=== PATIENT | female | born 1980 | race Caucasian/White ===

== ENCOUNTER 2016-05-25 09:24 | Inpatient (IN) | payer OTHER ==
[2016-05-25 10:17] VITALS: BMI 43.9
--- NOTE | 2016-05-25 11:42 | HP ---
COWS - Scale Resting Pulse: 1= [place] 81-100 Sweatin=Flushed/Facial Moisture Restless Observation: 3= Extraneous Movement Pupil Size: 2= Moderately Dilated Bone or Joint Aches: 2= Severe Diffuse Aches Runny Nose/ Eye Tearin= Runny Nose/Eyes GI Upset > 30mins: 3= Vomiting/Diarrhea Tremor Observation: 2= Slight Tremor Visible Yawning Observation: 2= >3x During Session Anxiety or Irritability: 2=Irritable/Anxious Goose Flesh Skin: 0=Smooth Skin COWS Score: 21 CIWA Score - CIWA Score Nausea/Vomitin Muscle Tremors: 3 Anxiety: 3 Agitation: 3 Paroxysmal Sweats: 2 Orientation: 0-Oriented Tacttile Disturbances: 2-Mild Itch/Numbness/Burn Auditory Disturbances: 2-Mild Harshness/Frighten Visual Disturbances: 2-Mild Sensitivity Headache: 2-Mild CIWA-Ar Total Score: 22 Admission ROS BHS - HPI Chief Complaint: I NEED HELP TO STOP USING HEROIN,KLONOPIN,ON SUBOXONE 8MGS/2 MGS BID,DID NOT TAKE SUBOXONE TODAY ASTHMA TMJ BOTH LAST DETOX 02/10 COMPLETED LONGEST PERIOD OF SOBRIETY 2 YEARS Allergies/Adverse Reactions: Allergies Allergy/AdvReac Type Severity Reaction Status Date / Time Cephalosporins Allergy Severe Swelling Verified 05/25/16 11:15 peach Allergy Severe Swelling Verified 02/05/15 21:03 Sulfa (Sulfonamide Allergy Severe Difficulty Verified 02/05/15 21:03 Antibiotics) Breathing History of Present Illness: THIS 36 YEARS OLD FEMALE WITH HEROIN,KONOPIN DEPENDENCE,SUBXOXONE MAINTENANCE 8MG/2 MS DID NOT EANT TO BE ON SUBOXONE ANY MORE FOR DETOX Exam Limitations: No Limitations - Ebola screening Have you traveled outside of the country in the last 21 days: No Have you had contact with anyone from an Ebola affected area: No Have you been sick,other than usual withdrawal symptoms: No Do you have a fever: No - Review of Systems Constitutional: Chills, Diaphoresis, Loss of Appetite, Malaise, Night Sweats, Changes in sleep, Weakness EENT: reports: Tearing, Nose Congestion, Other (HAD ENLARGED THYROID FOR 3 MONTHS ,WAS TOLD TO BE THE CYST, FOR 3 MONTHS) Respiratory: reports: No Symptoms reported Cardiac: reports: Palpitations GI: reports: Diarrhea, Nausea, Indigestion, Abdominal cramping : reports: No Symptoms Reported Musculoskeletal: reports: Back Pain, Joint Pain, Muscle Pain, Joint Stiffness Integumentary: reports: Dryness Neuro: reports: Headache, Tremors Endocrine: reports: No Symptoms Reported, Other (HAD PROBLEM WITH THYROID) Hematology: reports: No Symptoms Reported Psychiatric: reports: Anxious, Depressed Patient History - Patient Medical History Hx Anemia: No Hx Asthma: Yes (Pt is on MDI.) Hx Chronic Obstructive Pulmonary Disease (COPD): No Hx Cancer: No Hx Cardiac Disorders: No Hx Congestive Heart Failure: No Hx Hypertension: No Hx Hypercholesterolemia: No Hx Pacemaker: No HX Cerebrovascular Accident: No Hx Seizures: No Hx Dementia: No Hx Diabetes: No Hx Gastrointestinal Disorders: No Hx Liver Disease: No Hx Genitourinary Disorders: No Hx Sexually Transmitted Disorders: No Hx Renal Disease (ESRD): No Hx Thyroid Disease: Yes (ENLARGED THYROID AND THYROID CYST FOR 3 MONTHS) Hx Human Immunodeficiency Virus (HIV): No (LAST 12/11 NEGATIVE) Hx Hepatitis C: No Hx Depression: Yes Hx Suicide Attempt: Yes (Tried to cut herself in 2008) Hx Bipolar Disorder: No Hx Schizophrenia: No Other Medical History: NO SUICIDAL,NO HOMICIDAL - Patient Surgical History Past Surgical History: Yes Hx Cholecystectomy: Yes (2009 [facility]) - PPD History Previous Implant?: Yes Documented Results: Negative w/o proof Implanted On Prior [facility] Admission?: No PPD to be Administered?: Yes - Reproductive History Patient is a Female of Child Bearing Age (11 -55 yrs old): Yes Last Menstrual Period: 05/15/16 Patient : No - Smoking Cessation Smoking history: Never smoked - Substance & Tx. History Hx Alcohol Use: Yes Hx Substance Use: Yes Substance Use Type: Heroin, Tranquilizers - Substances Abused Heroin Route: Inhalation Frequency: Daily Amount used: 10 bags Age of first use: 34 Date of Last Use: 05/24/16 Benzodiazepine (Klonopin) Route: Oral Frequency: Daily Amount used: 20mg Age of first use: 28 Date of Last Use: 05/24/16 Family Disease History - Family Disease History Family Disease History: Other: Father (DSA), Mother (SANDI) Admission Physical Exam BHS - Vital Signs Vital Signs: Vital Signs - 24 hr 05/25/16 10:15 Temperature 96.2 F L Pulse Rate 99 H Respiratory 18 Rate Blood Pressure 134/89 - Physical General Appearance: Yes: Moderate Distress, Tremorous, Irritable, Sweating, Anxious HEENTM: Yes: Nasal Congestion, Other (ENLARGED THYROID WITH PAIN LEFT SIDE OF NECK HYPOTHYROID) Respiratory: Yes: Lungs Clear, Normal Breath Sounds, No Respiratory Distress Neck: Yes: Thyroid enlarged Breast: Yes: Breast Exam Deferred Cardiology: Yes: Within Normal Limits, Regular Rhythm, Regular Rate, S1, S2 Abdominal: Yes: Normal Bowel Sounds, Non Tender, Flat, Soft, Surgical Scar Genitourinary: Yes: Within Normal Limits Back: Yes: Normal Inspection, Muscle Spasm Extremities: Yes: Normal Inspection, Normal Range of Motion, Tremors 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: 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, Fully Oriented, Alert, Motor Strength 5/5 Integumentary: Yes: Dry Lymphatic: Yes: Within Normal Limits - Diagnostic (1) Opioid dependence with withdrawal Current Visit: Yes Status: Acute (2) Uncomplicated sedative, hypnotic or anxiolytic withdrawal Current Visit: Yes Status: Acute (3) Encounter for monitoring Suboxone maintenance therapy Current Visit: Yes Status: Acute (4) TMJ (temporomandibular joint disorder) Current Visit: Yes Status: Acute (5) Anxiety with depression Current Visit: Yes Status: Acute (6) Asthma Current Visit: Yes Status: Acute (7) Hypothyroid Current Visit: Yes Status: Acute (8) H/O thyroid cyst Current Visit: Yes Status: Acute (9) Obesity Current Visit: Yes Status: Acute (10) S/P laparoscopic cholecystectomy Current Visit: Yes Status: Acute Cleared for Admission [facility] - Detox or Rehab [facility] Level of Care: Medically Managed Detox Regimen/Protocol: Methadone/Valium (PATIENT DID NOT WANT TO BE ON SUBOXONE ) [facility] Breath Alcohol Content Breath Alcohol Content: 0 Urine Pregancy Test - Result Urine Test Results: Negative- NO Line Present Urine Drug Screen - Results Drug Screen Negative: No Urine Drug Screen Results: OPI-Opiates, BZO-Benzodiazepines, TCA-Tricyclic Antidepress, OXY-Oxycodone
[2016-05-25] MEDS ORDERED: MAG HYDROX/AL HYDROX/SIMETH 30 ML UNIT-DOSE CUP PO PRN (12:15)
[2016-05-25] MEDS ORDERED: MENTHOL/PHENOL 1 EACH UD MM PRN (12:15)
[2016-05-25] MEDS ORDERED: MAGNESIUM CITRATE 300 ML BOTTLE PO PRN (12:15)
[2016-05-25] MEDS ORDERED: MAGNESIUM HYDROX 2400MG/30ML ORAL SUSPENSION 30 ML CUP PO PRN (12:15)
[2016-05-25] MEDS ORDERED: P-EPHED 60MG/TRIPROLIDI 2.5MG TABLET PO PRN (12:15)
[2016-05-25] MEDS ORDERED: LOPERAMIDE HCL 2 MG CAPSULE PO PRN (12:15)
[2016-05-25] MEDS ORDERED: ACETAMINOPHEN 325 MG TABLET (FP) PO PRN (12:15)
[2016-05-25] MEDS ORDERED: guaiFENesin/D-METHORPHAN HB 10 ML UNIT-DOSE CUPS PO PRN (12:15)
[2016-05-25] MEDS ORDERED: diazePAM 5 MG TABLET PO ONE (12:39)
[2016-05-25] MEDS ORDERED: METHADONE HCL 10 MG TABLET (FOR DETOX USE ONLY) PO ONE ×2 (12:40→23:00)
[2016-05-25] MEDS: CYCLOBENZAPRINE HCL 10 MG TABLET (FP) PO SCH ×2 (13:42→22:30)
[2016-05-25] MEDS: diazePAM 5 MG TABLET PO SCH ×2 (15:00→22:30)
[2016-05-25] MEDS: IBUPROFEN 400 MG TABLET (FP) PO PRN (15:32)
[2016-05-25] MEDS: hydrOXYzine PAMOATE 50 MG CAPSULE (FP) PO PRN (15:32)
[2016-05-25] MEDS: diazePAM 5 MG TABLET PO PRN (18:06)
[2016-05-25 20:29] LABS: URINE APPEARANCE CLEAR; URINE BILIRUBIN NEGATIVE (NEGATIVE); URINE BLOOD NEGATIVE (NEGATIVE); URINE COLOR YELLOW; URINE GLUCOSE (UA) NEGATIVE (NEGATIVE); URINE KETONE NEGATIVE (NEGATIVE); URINE LEUK ESTERASE NEGATIVE (NEGATIVE); URINE NITRITE NEGATIVE (NEGATIVE); URINE PROTEIN NEGATIVE (NEGATIVE); URINE UROBILINOGEN NEGATIVE E.U./dl (0.2-1.0)
[2016-05-25] MEDS: cloNIDine HCL 0.1 MG TABLET PO SCH (22:29)
[2016-05-25] MEDS: GABAPENTIN 400 MG CAPSULE (FP) PO SCH (22:30)
[2016-05-25] MEDS: THIAMINE HCL 100 MG TABLET (FP) PO SCH (22:30)
[2016-05-25] MEDS: diphenhydrAMINE HCL 50 MG CAPSULE PO PRN (22:31)
[2016-05-26] MEDS: diazePAM 5 MG TABLET PO PRN ×3 (00:32→16:51)
[2016-05-26] MEDS: diazePAM 5 MG TABLET PO SCH ×3 (05:52→22:23)
[2016-05-26] MEDS: CYCLOBENZAPRINE HCL 10 MG TABLET (FP) PO SCH ×3 (05:52→22:21)
[2016-05-26 09:47] LABS: URINE APPEARANCE CLEAR; URINE BILIRUBIN NEGATIVE (NEGATIVE); URINE BLOOD NEGATIVE (NEGATIVE); URINE COLOR YELLOW; URINE GLUCOSE (UA) NEGATIVE (NEGATIVE); URINE KETONE NEGATIVE (NEGATIVE); URINE LEUK ESTERASE NEGATIVE (NEGATIVE); URINE NITRITE NEGATIVE (NEGATIVE); URINE PROTEIN NEGATIVE (NEGATIVE); URINE UROBILINOGEN NEGATIVE E.U./dl (0.2-1.0)
[2016-05-26 09:49] LABS: MCH 29.4 pg (25.7-33.7); MCHC 33.3 g/dl (32.0-36.0); MEAN CELL VOLUME 88.3 fl (80-96); MEAN PLT VOLUME 8.4 fl (7.5-11.1); PLATELET COUNT 263 K/MM3 (134-434); RDW 13.1 % (11.6-15.6); WHITE BLOOD COUNT 7.8 K/mm3 (4.0-10.0)
[2016-05-26] MEDS ORDERED: METHADONE HCL 10 MG TABLET (FOR DETOX USE ONLY) PO SCH (10:00)
[2016-05-26] MEDS ORDERED: TRIMETHOBENZAMIDE HCL 300 MG CAPSULE PO PRN (10:22)
--- NOTE | 2016-05-26 10:26 | PN ---
[facility] CIWA - CIWA Score Nausea/Vomitin-No Nausea/No Vomiting Muscle Tremors: 3 Anxiety: 3 Agitation: 4-Moderately Restless Paroxysmal Sweats: 3 Orientation: 0-Oriented Tacttile Disturbances: 0-None Auditory Disturbances: 0-None Visual Disturbances: 0-None Headache: 1-Very Mild CIWA-Ar Total Score: 14 BHS COWS - Scale Resting Pulse: 0= [place] 80 or Below Sweatin=Flushed/Facial Moisture Restless Observation: 1= Difficult to Sit Still Pupil Size: 0= Normal to Room Light Bone or Joint Aches: 2= Severe Diffuse Aches Runny Nose/ Eye Tearin= Runny Nose/Eyes GI Upset > 30mins: 2= Nausea/Diarrhea Tremor Observation of Outstretched Hands: 2= Slight Tremor Visible Yawning Observation: 2= >3x During Session Anxiety or Irritability: 2=Irritable/Anxious Goose Flesh Skin: 3=Piloerection COWS Score: 18 [facility] Progress Note (SOAP) Subjective: sweats shakes interrupted sleep agitation anxiety body aches nausea I have hemorrhoids Objective: 05/26/16 10:25 Vital Signs Temperature 97.2 F L 05/26/16 06:00 Pulse Rate 96 H 05/26/16 06:00 Respiratory Rate 18 05/26/16 06:00 Blood Pressure 119/70 05/26/16 06:00 O2 Sat by Pulse Oximetry (%) Laboratory Tests 05/25/16 05/26/16 13:00 07:00 Urine Color Yellow Yellow Urine Appearance Clear Clear Urine pH 5.0 5.0 Ur Specific [place] 1.026 1.029 Urine Protein Negative Negative Urine Glucose (UA) Negative Negative Urine Ketones Negative Negative Urine Blood Negative Negative Urine Nitrite Negative Negative Urine Bilirubin Negative Negative Urine Urobilinogen Negative Negative Ur Leukocyte Esterase Negative Negative labs pending awake/alert ambulating no acute distress Assessment: 05/26/16 10:26 withdrawal sx Plan: continue detox increase fluids tigan po prn motrin/tylenol prn anusol bid
[2016-05-26 10:36] LABS: HIV 1 & 2 AB NEGATIVE; HIV 1 AGp24 NEGATIVE
[2016-05-26] MEDS: cloNIDine HCL 0.1 MG TABLET PO SCH ×2 (10:42→22:20)
[2016-05-26] MEDS: PRENATAL VITAMINS W/ FOLIC ACID TABLET (FP) PO SCH (10:42)
--- NOTE | 2016-05-26 11:56 | EKG ---
Test Reason : Blood Pressure : / mmHG Vent. Rate : 094 BPM Atrial Rate : 094 BPM P-R Int : 142 ms QRS Dur : 084 ms QT Int : 374 ms P-R-T Axes : 051 043 037 degrees QTc Int : 467 ms NORMAL SINUS RHYTHM NONSPECIFIC ST ABNORMALITY NO PREVIOUS ECGS AVAILABLE Confirmed by MONI OVALLE MD ([id number]) on 05/26/2016 11:56:27 AM Referred By: Wolf Boyd Confirmed By:MONI OVALLE MD
[2016-05-26] MEDS: HYDROCORTISONE 2.5% TOPICAL CREAM 30 GM TUBE TP SCH ×2 (11:58→22:19)
[2016-05-26] MEDS ORDERED: INFLUENZA VACCINE 45 MCG/0.5 ML (MDV 16-17) IM ONE (12:00)
[2016-05-26] MEDS ORDERED: PNEUMOC 13-VAL CONJ-DIP CRM/PF 0.5 ML DISP.SYRIN IM ONE (12:00)
[2016-05-26] MEDS ORDERED: PNEUMOCOCCAL 23 VACCINE 0.5 ML VIAL IM ONE (12:00)
[2016-05-26 12:17] LABS: ALK PHOS 104 U/L (45-117); ANION GAP 10 (8-16); BILIRUBIN,TOTAL 0.3 mg/dL (0.2-1.0); CALCIUM 8.7 mg/dL (8.5-10.1); CO2 29 mmol/L (21-32); CREATININE 0.9 mg/dL (0.55-1.02); FREE T4 0.79 ng/dl (0.76-1.46); GLUCOSE,RANDOM 111 mg/dL (74-106); SGOT/AST 46 U/L (15-37); SGPT/ALT 37 U/L (12-78); T3 UPTAKE 34.3 % (30-39); THYROID STIMULATING HORMONE 4.18 uIU/ml (0.358-3.74); TOT PROT 7.5 g/dl (6.4-8.2)
--- NOTE | 2016-05-26 13:05 | CONSULT ---
[facility] Psychiatric Consult - Data Date of interview: 05/26/16 Admission source: [facility] Identifying data: First admission to [facility] for this 36 y/o female seeking detox treatment for heroin and sedative/anxiolytic (klonopin) dependence.Patient is without children,domiciled,currently unemployed and supported by spouse. Substance Abuse History: - Smoking Cessation. Smoking history: Never smoked. - Substance & Tx. History. Hx Alcohol Use: Yes. Hx Substance Use: Yes. Substance Use Type: Heroin, Tranquilizers. - Substances Abused. Heroin. Route: Inhalation. Frequency: Daily. Amount used: 10 bags. Age of first use: 34. Date of Last Use: 05/24/16. Benzodiazepine (Klonopin). Route: Oral. Frequency: Daily. Amount used: 20mg. Age of first use: 28. Date of Last Use: 05/24/16. Confirmed by patient. Medical History: Bronchial asthma,trigeminal neuralgia,thyroid cyst and a history of cholecystectomy (2009). Psychiatric History: Twice admitted to the psychiatric inpatient service at [facility] (2008).Diagnosed with MDD and Anxiety Disorder.Prescibed gabapentin 03985 mg/hs + amitryptiline 50 mg/bid + wellbutrinXL 300 mg/daily.Followed by a private psychiatrist,Dr Taylor,in [facility].Ms Ralph denies history of suicide attempts. Physical/Sexual Abuse/Trauma History: Patient denies. Additional Comment: Urine Drug Screen Results: OPI-Opiates, BZO-Benzodiazepines , TCA-Tricyclic Antidepressant, OXY-Oxycodone.Noted. Mental Status Exam - Mental Status Exam Alert and Oriented to: Time, Place, Person Cognitive Function: Good Patient Appearance: Well Groomed (obese) Mood: Sad, Withdrawn, Anxious, Apprehensive Affect: Constricted Patient Behavior: Fatigued, Appropriate, Cooperative Speech Pattern: Clear, Appropriate Voice Loudness: Normal Thought Process: Goal Oriented Thought Disorder: Not Present Hallucinations: Denies Suicidal Ideation: Denies Homicidal Ideation: Denies Insight/Judgement: Fair Sleep: Fair Appetite: Good Muscle strength/Tone: Normal Gait/Station: Normal Psychiatric Findings - Problem List ([place] 1, 2,3) (1) Opioid dependence with withdrawal Current Visit: Yes Status: Acute (2) Uncomplicated sedative, hypnotic or anxiolytic withdrawal Current Visit: Yes Status: Acute (3) Depressive disorder Current Visit: Yes Status: Chronic (4) Substance-induced anxiety disorder Current Visit: Yes Status: Acute (5) H/O thyroid cyst Current Visit: Yes Status: Chronic (6) Hypothyroid Current Visit: Yes Status: Chronic (7) Obesity Current Visit: Yes Status: Chronic (8) S/P laparoscopic cholecystectomy Current Visit: No Status: Chronic (9) TMJ (temporomandibular joint disorder) Current Visit: Yes Status: Chronic - Initial Treatment Plan Initial Treatment Plan: Psychoeducation.Detoxification.Medications : wellbutrin XL 300 mg po daily + elavil 25 mg po bid + gabapentin 1200 mg po hs.Side effects /benefits discussed with the patient.She agrees with this careplan.Observation.
[2016-05-26] MEDS ORDERED: diphenhydrAMINE HCL 50 MG CAPSULE PO PRN (13:36)
[2016-05-26] MEDS ORDERED: diphenhydrAMINE HCL 50 MG CAPSULE PO ONE (14:15)
[2016-05-26] MEDS: AMITRIPTYLINE HCL 25 MG TABLET (FP) PO SCH (22:21)
[2016-05-26] MEDS: GABAPENTIN 400 MG CAPSULE (FP) PO SCH (22:21)
[2016-05-26] MEDS: THIAMINE HCL 100 MG TABLET (FP) PO SCH (22:23)
[2016-05-27] MEDS: diazePAM 5 MG TABLET PO PRN ×3 (05:39→18:29)
[2016-05-27] MEDS: CYCLOBENZAPRINE HCL 10 MG TABLET (FP) PO SCH ×3 (05:39→22:42)
[2016-05-27] MEDS: ALBUTEROL SO4 6.7 GM HFA INHALER IH PRN ×2 (05:42→11:16)
[2016-05-27] MEDS: HYDROCORTISONE 2.5% TOPICAL CREAM 30 GM TUBE TP SCH ×2 (10:35→22:40)
[2016-05-27] MEDS: PRENATAL VITAMINS W/ FOLIC ACID TABLET (FP) PO SCH (10:36)
[2016-05-27] MEDS: diazePAM 5 MG TABLET PO SCH ×2 (10:36→22:42)
[2016-05-27] MEDS: cloNIDine HCL 0.1 MG TABLET PO SCH ×2 (10:36→22:40)
[2016-05-27] MEDS: AMITRIPTYLINE HCL 25 MG TABLET (FP) PO SCH ×2 (10:36→23:28)
[2016-05-27] MEDS: METHADONE HCL 5 MG TABLET (FOR DETOX USE ONLY) PO SCH (10:37)
--- NOTE | 2016-05-27 13:29 | PN ---
[facility] CIWA - CIWA Score Nausea/Vomitin Muscle Tremors: 3 Anxiety: 3 Agitation: 2 Paroxysmal Sweats: 1-Minimal Palms Moist Orientation: 0-Oriented Tacttile Disturbances: 1-Very Mild Itch/Numbness Auditory Disturbances: 1-Very Mild Visual Disturbances: 1-Very Mild Sensitivity Headache: 2-Mild CIWA-Ar Total Score: 17 BHS Progress Note (SOAP) Subjective: ALERT,IRRITABLE,ANXIOUS,INTERRUPTED SLEEP,PAIN IN THE BODY AND BACK,TREMOR, ULCER OF RIGHT HEEL Objective: 05/27/16 13:27 Vital Signs Temperature 99.1 F 05/27/16 10:01 Pulse Rate 91 H 05/27/16 10:01 Respiratory Rate 18 05/27/16 10:01 Blood Pressure 124/70 05/27/16 10:01 O2 Sat by Pulse Oximetry (%) Laboratory Last Values WBC 7.8 K/mm3 (4.0-10.0) 05/26/16 06:00 RBC 4.69 M/mm3 (3.60-5.2) 05/26/16 06:00 Hgb 13.8 GM/dL (10.7-15.3) 05/26/16 06:00 Hct 41.4 % (32.4-45.2) 05/26/16 06:00 MCV 88.3 fl (80-96) 05/26/16 06:00 MCHC 33.3 g/dl (32.0-36.0) 05/26/16 06:00 RDW 13.1 % (11.6-15.6) 05/26/16 06:00 Plt Count 263 K/MM3 (134-434) 05/26/16 06:00 MPV 8.4 fl (7.5-11.1) 05/26/16 06:00 Sodium 142 mmol/L (136-145) 05/26/16 06:00 Potassium 3.8 mmol/L (3.5-5.1) 05/26/16 06:00 Chloride 103 mmol/L (98-107) 05/26/16 06:00 Carbon Dioxide 29 mmol/L (21-32) 05/26/16 06:00 Anion Gap 10 (8-16) 05/26/16 06:00 BUN 16 mg/dL (7-18) 05/26/16 06:00 Creatinine 0.9 mg/dL (0.55-1.02) 05/26/16 06:00 Creat Clearance w eGFR > 60 (>60) 05/26/16 06:00 Random Glucose 111 mg/dL (74-106) H 05/26/16 06:00 Calcium 8.7 mg/dL (8.5-10.1) 05/26/16 06:00 Total Bilirubin 0.3 mg/dL (0.2-1.0) 05/26/16 06:00 AST 46 U/L (15-37) H 05/26/16 06:00 ALT 37 U/L (12-78) 05/26/16 06:00 Alkaline Phosphatase 104 U/L (45-117) 05/26/16 06:00 Total Protein 7.5 g/dl (6.4-8.2) 05/26/16 06:00 Albumin 4.0 g/dl (3.4-5.0) 05/26/16 06:00 TSH 4.18 uIU/ml (0.358-3.74) H 05/26/16 06:00 Free T4 0.79 ng/dl (0.76-1.46) 05/26/16 06:00 Resin T3 Uptake 34.3 % (30-39) 05/26/16 06:00 Urine Color Yellow 05/26/16 07:00 Urine Appearance Clear 05/26/16 07:00 Urine pH 5.0 (5.0-8.0) 05/26/16 07:00 Ur Specific [place] 1.029 (1.001-1.035) 05/26/16 07:00 Urine Protein Negative (NEGATIVE) 05/26/16 07:00 Urine Glucose (UA) Negative (NEGATIVE) 05/26/16 07:00 Urine Ketones Negative (NEGATIVE) 05/26/16 07:00 Urine Blood Negative (NEGATIVE) 05/26/16 07:00 Urine Nitrite Negative (NEGATIVE) 05/26/16 07:00 Urine Bilirubin Negative (NEGATIVE) 05/26/16 07:00 Urine Urobilinogen Negative E.U./dl (0.2-1.0) 05/26/16 07:00 Ur Leukocyte Esterase Negative (NEGATIVE) 05/26/16 07:00 RPR Titer Nonreactive (NONREACTIVE) 05/26/16 06:00 HIV 1&2 Antibody Screen Negative 05/25/16 13:00 HIV P24 Antigen Negative 05/25/16 13:00 Assessment: 05/27/16 13:28 WITHDRAWAL SYMPTOM Plan: CONTINUE DETOX,BACITRACIN OINTMENT DRESSING BID
[2016-05-27] MEDS: THIAMINE HCL 100 MG TABLET (FP) PO SCH (22:41)
[2016-05-27] MEDS: GABAPENTIN 400 MG CAPSULE (FP) PO SCH (22:42)
[2016-05-28] MEDS: diazePAM 5 MG TABLET PO PRN ×2 (04:03→12:07)
[2016-05-28] MEDS: ALBUTEROL SO4 6.7 GM HFA INHALER IH PRN ×2 (04:43→17:27)
[2016-05-28] MEDS: CYCLOBENZAPRINE HCL 10 MG TABLET (FP) PO SCH ×3 (05:11→22:26)
[2016-05-28] MEDS: IBUPROFEN 400 MG TABLET (FP) PO PRN (08:45)
[2016-05-28] MEDS: PRENATAL VITAMINS W/ FOLIC ACID TABLET (FP) PO SCH (10:36)
[2016-05-28] MEDS: AMITRIPTYLINE HCL 25 MG TABLET (FP) PO SCH ×2 (10:37→22:27)
[2016-05-28] MEDS: cloNIDine HCL 0.1 MG TABLET PO SCH ×2 (10:37→22:26)
[2016-05-28] MEDS: METHADONE HCL 5 MG TABLET (FOR DETOX USE ONLY) PO SCH (10:38)
[2016-05-28] MEDS: HYDROCORTISONE 2.5% TOPICAL CREAM 30 GM TUBE TP SCH ×2 (10:38→22:27)
[2016-05-28] MEDS: diazePAM 5 MG TABLET PO SCH ×2 (10:38→22:27)
[2016-05-28] MEDS: LIDOCAINE 5% TOPICAL PATCH TP SCH (12:07)
--- NOTE | 2016-05-28 13:10 | PN ---
BHS Progress Note (SOAP) Subjective: ALERT,IRRITABLE,ANXIOUS,INTERRUPTED SLEEP,TREMOR,PAIN IN THE BODY AND BACK Objective: 05/28/16 13:09 Vital Signs Temperature 98.2 F 05/28/16 10:52 Pulse Rate 82 05/28/16 10:52 Respiratory Rate 20 05/28/16 10:52 Blood Pressure 119/75 05/28/16 10:52 O2 Sat by Pulse Oximetry (%) 05/28/16 13:09 Assessment: 05/28/16 13:09 WITHDRAWAL SYMPTOM Plan: CONTINUE DETOX
[2016-05-28] MEDS: THIAMINE HCL 100 MG TABLET (FP) PO SCH (22:26)
[2016-05-28] MEDS: GABAPENTIN 400 MG CAPSULE (FP) PO SCH (22:26)
[2016-05-29] MEDS: IBUPROFEN 400 MG TABLET (FP) PO PRN ×2 (00:44→05:49)
[2016-05-29] MEDS: CYCLOBENZAPRINE HCL 10 MG TABLET (FP) PO SCH ×3 (05:47→22:35)
[2016-05-29] MEDS: hydrOXYzine PAMOATE 50 MG CAPSULE (FP) PO PRN ×3 (05:49→20:40)
[2016-05-29] MEDS ORDERED: ALBUTEROL SO4 2.5/IPRATROPIUM 0.5 INH SOL 3 ML VIAL.NEB. NEB PRN (09:31)
[2016-05-29] MEDS ORDERED: diazePAM 5 MG TABLET PO SCH (10:00)
[2016-05-29] MEDS ORDERED: METHADONE HCL 10 MG TABLET (FOR DETOX USE ONLY) PO SCH (10:00)
[2016-05-29] MEDS: cloNIDine HCL 0.1 MG TABLET PO SCH ×2 (10:14→22:34)
[2016-05-29] MEDS: PRENATAL VITAMINS W/ FOLIC ACID TABLET (FP) PO SCH (10:14)
[2016-05-29] MEDS: AMITRIPTYLINE HCL 25 MG TABLET (FP) PO SCH ×2 (10:15→22:35)
[2016-05-29] MEDS: HYDROCORTISONE 2.5% TOPICAL CREAM 30 GM TUBE TP SCH ×2 (10:16→22:34)
[2016-05-29] MEDS: LIDOCAINE 5% TOPICAL PATCH TP SCH (10:17)
--- NOTE | 2016-05-29 10:33 | PN ---
BHS Progress Note (SOAP) Subjective: asthma/sob sweats body aches Objective: 05/29/16 10:27 Vital Signs Temperature 97.3 F L 05/29/16 06:00 Pulse Rate 87 05/29/16 06:00 Respiratory Rate 18 05/29/16 06:00 Blood Pressure 100/56 05/29/16 06:00 O2 Sat by Pulse Oximetry (%) awake/alert ambulating SOB Assessment: 05/29/16 10:31 withdrawal sx Plan: continue detox increase fluids duoneb prn albuterol tx d/c in am
[2016-05-29] MEDS: diphenhydrAMINE HCL 50 MG CAPSULE PO PRN (22:34)
[2016-05-29] MEDS: GABAPENTIN 400 MG CAPSULE (FP) PO SCH (22:35)
[2016-05-29] MEDS: THIAMINE HCL 100 MG TABLET (FP) PO SCH (22:35)
[2016-05-30] MEDS: CYCLOBENZAPRINE HCL 10 MG TABLET (FP) PO SCH (05:43)
[2016-05-30] MEDS ORDERED: METHADONE HCL 5 MG TABLET (FOR DETOX USE ONLY) PO SCH (06:00)
--- NOTE | 2016-05-30 08:48 | DS ---
[facility] Detox Discharge Summary Admission Date: 05/25/16 Discharge Date: 05/30/16 - History Present History: Opioid Dependence, Sedative Dependence - Physical Exam Results Vital Signs: Vital Signs Temperature 97.7 F 05/30/16 06:32 Pulse Rate 97 H 05/30/16 06:32 Respiratory Rate 20 05/30/16 06:32 Blood Pressure 105/68 05/30/16 06:32 O2 Sat by Pulse Oximetry (%) - Treatment Hospital Course: Detox Protocol Followed, Detoxed Safely, Responded well, Discharged Condition Good, Rehab Referral Accepted - Medication Discharge Medications: Ambulatory Orders Albuterol Sulfate Inhaler - [Ventolin Hfa Inhaler -] 2 inh PO Q4H PRN 05/25/16 Amitriptyline HCl [Elavil -] 50 mg PO BID 05/25/16 Buprenorphine/Naloxone [Suboxone 8Mg/2Mg Sl Film -] 1 each SL BID 05/25/16 Bupropion HCl [Bupropion Xl] 300 mg PO DAILY 05/25/16 Clonidine HCl [Catapres -] 0.2 mg PO BID 05/25/16 Cyclobenzaprine HCl [Flexeril 10 mg] 10 mg PO TID 05/25/16 Gabapentin 1,200 mg PO HS 05/25/16 - Diagnosis (1) Anxiety with depression Current Visit: Yes Status: Chronic (2) Asthma Current Visit: Yes Status: Chronic Qualifiers: Asthma complication type: uncomplicated (3) Encounter for monitoring Suboxone maintenance therapy Current Visit: Yes Status: Acute (4) Opioid dependence with withdrawal Current Visit: Yes Status: Chronic (5) Substance-induced anxiety disorder Current Visit: Yes Status: Chronic (6) Uncomplicated sedative, hypnotic or anxiolytic withdrawal Current Visit: Yes Status: Chronic (7) Depressive disorder Current Visit: Yes Status: Chronic (8) H/O thyroid cyst Current Visit: Yes Status: Chronic (9) Hypothyroid Current Visit: Yes Status: Chronic (10) Obesity Current Visit: Yes Status: Chronic Qualifiers: Obesity severity: morbid (11) TMJ (temporomandibular joint disorder) Current Visit: Yes Status: Chronic (12) S/P laparoscopic cholecystectomy Current Visit: No Status: Chronic - AMA Did Patient Leave Against Medical Advice: No
[2016-05-30] MEDS: PRENATAL VITAMINS W/ FOLIC ACID TABLET (FP) PO SCH (09:21)
[2016-05-30] MEDS: cloNIDine HCL 0.1 MG TABLET PO SCH (09:21)
[2016-05-30] MEDS: AMITRIPTYLINE HCL 25 MG TABLET (FP) PO SCH (09:21)
[2016-05-30] MEDS: LIDOCAINE 5% TOPICAL PATCH TP SCH (09:22)
[2016-05-30 10:54] VITALS: BP 107/67; PULSE 106; TEMP 98.2
== END 2016-05-30 09:30 | disposition home or self-care (01) | DRG 773 ==
LOC: YASAS 09:24 → Y6N 12:01
PROVIDERS: ADMIT Internal Medicine Addiction Medicine; ATTEND Internal Medicine Addiction Medicine
PROC: HZ2ZZZZ Detoxification Services for Substance Abuse Treatment (ICD-10-PCS; principal; 2016-05-30)
DX: F11.23 Opioid dependence with withdrawal (principal); F13.230 Sedative, hypnotic or anxiolytic dependence with withdrawal, uncomplicated; F41.8 Other specified anxiety disorders; F34.1 Dysthymic disorder; F19.280 Other psychoactive substance dependence with psychoactive substance-induced anxiety disorder; J45.909 Unspecified asthma, uncomplicated; M26.69 Other specified disorders of temporomandibular joint; E03.9 Hypothyroidism, unspecified; E66.01 Morbid (severe) obesity due to excess calories; Z68.43 Body mass index [BMI] 50.0-59.9, adult
CPT/HCPCS: 36415; 80053; 81003; 84439; 84443; 84479; 85027; 86593; 87389; 90732; 93005; 93010; 94640; G0009

== ENCOUNTER 2016-07-19 09:39 | Inpatient (IN) | payer OTHER ==
[2016-07-19 11:02] VITALS: BMI 39.5
--- NOTE | 2016-07-19 13:18 | HP ---
COWS - Scale Resting Pulse: 0= [place] 80 or Below Sweatin=Flushed/Facial Moisture Restless Observation: 3= Extraneous Movement Pupil Size: 2= Moderately Dilated Bone or Joint Aches: 2= Severe Diffuse Aches Runny Nose/ Eye Tearin= Runny Nose/Eyes GI Upset > 30mins: 3= Vomiting/Diarrhea Tremor Observation: 2= Slight Tremor Visible Yawning Observation: 2= >3x During Session Anxiety or Irritability: 2=Irritable/Anxious Goose Flesh Skin: 0=Smooth Skin COWS Score: 20 CIWA Score - CIWA Score Nausea/Vomitin Muscle Tremors: 3 Anxiety: 3 Agitation: 3 Paroxysmal Sweats: 1-Minimal Palms Moist Orientation: 0-Oriented Tacttile Disturbances: 2-Mild Itch/Numbness/Burn Auditory Disturbances: 2-Mild Harshness/Frighten Visual Disturbances: 2-Mild Sensitivity Headache: 2-Mild CIWA-Ar Total Score: 21 Admission ROS S - HPI Chief Complaint: i need help to stop using heroin and xanax and klonopin Allergies/Adverse Reactions: Allergies Allergy/AdvReac Type Severity Reaction Status Date / Time Cephalosporins Allergy Severe Swelling Verified 07/19/16 12:51 peach Allergy Severe Swelling Verified 07/19/16 12:51 Sulfa (Sulfonamide Allergy Severe Difficulty Verified 07/19/16 12:51 Antibiotics) Breathing History of Present Illness: this 36 years old female with heroin and xanax dependence seeking help for detox ,last detox [facility] 05/25/16 to 05/30/16 multiple medical problems hypothyroidism,cysts of thyroid,low back pain, no significant period of sobriety Exam Limitations: No Limitations - Ebola screening Have you traveled outside of the country in the last 21 days: No Have you had contact with anyone from an Ebola affected area: No Have you been sick,other than usual withdrawal symptoms: No - Review of Systems Constitutional: Chills, Diaphoresis, Loss of Appetite, Malaise, Night Sweats, Changes in sleep, Weakness EENT: reports: Tearing, Nose Congestion, Other (enlargement of thyroid,cyst) Respiratory: reports: No Symptoms reported Cardiac: reports: Palpitations GI: reports: Diarrhea, Nausea, Vomiting, Abdominal cramping : reports: No Symptoms Reported Musculoskeletal: reports: Back Pain, Joint Pain, Muscle Pain, Joint Stiffness Integumentary: reports: Dryness Neuro: reports: Headache, Tremors Endocrine: reports: No Symptoms Reported, Other (hypothyroidism) Hematology: reports: No Symptoms Reported Psychiatric: reports: Anxious, Depressed Patient History - Patient Medical History Hx Anemia: No Hx Asthma: Yes (Pt is on MDI.) Hx Chronic Obstructive Pulmonary Disease (COPD): No Hx Cancer: No Hx Cardiac Disorders: No Hx Congestive Heart Failure: No Hx Hypertension: No Hx Hypercholesterolemia: No Hx Pacemaker: No HX Cerebrovascular Accident: No Hx Seizures: No Hx Dementia: No Hx Diabetes: No Hx Gastrointestinal Disorders: No Hx Liver Disease: No Hx Genitourinary Disorders: No Hx Sexually Transmitted Disorders: No Hx Renal Disease (ESRD): No Hx Thyroid Disease: Yes (ENLARGED THYROID AND THYROID CYST FOR 3 MONTHS) Hx Human Immunodeficiency Virus (HIV): No (05/25/16 NEGATIVE) Hx Hepatitis C: No Hx Depression: Yes Hx Suicide Attempt: Yes (Tried to cut herself in 2008) Hx Bipolar Disorder: No Hx Schizophrenia: No Other Medical History: NO SUICIDAL,NO HOMICIDAL - Patient Surgical History Past Surgical History: Yes Hx Cholecystectomy: Yes (2009 [facility]) - PPD History Previous Implant?: Yes Documented Results: Negative w/proof Implanted On Prior [facility] Admission?: Yes Date: 05/27/16 Results: 0 MM PPD to be Administered?: No - Reproductive History Patient is a Female of Child Bearing Age (11 -55 yrs old): Yes Last Menstrual Period: 05/15/16 Patient : No - Smoking Cessation Smoking history: Never smoked - Substance & Tx. History Hx Alcohol Use: No Hx Substance Use: Yes Substance Use Type: Heroin, Tranquilizers Hx Substance Use Treatment: Yes ([facility] 05/25/16 TO 05/30/16) - Substances Abused Heroin Route: Inhalation Frequency: Daily Amount used: 40 bags Age of first use: 30 Date of Last Use: 07/18/16 Alprazolam (Xanax) Route: Oral Frequency: Daily Amount used: 8-10 mg Age of first use: 26 Date of Last Use: 07/18/16 Family Disease History - Family Disease History Family Disease History: Other: Father (DSA), Mother (SANDI) Admission Physical Exam BHS - Vital Signs Vital Signs: Vital Signs - 24 hr 07/19/16 10:58 Temperature 98.4 F Pulse Rate 78 Respiratory 18 Rate Blood Pressure 145/97 - Physical General Appearance: Yes: Moderate Distress, Obese, Thin, Tremorous, Irritable, Sweating, Anxious HEENTM: Yes: Pharynx Normal, Nasal Congestion, Other (ENLAGEMENT OF THYROID) Neck: Yes: Supple, Trachea in good position, Thyroid enlarged Breast: Yes: Breast Exam Deferred Cardiology: Yes: Within Normal Limits, Regular Rhythm, Regular Rate, S1, S2 Abdominal: Yes: Within Normal Limits, Normal Bowel Sounds, Non Tender, Flat, Soft, Other (S/P LAP CHOLCYSTECTOMY) Genitourinary: Yes: Within Normal Limits Back: Yes: Normal Inspection, Muscle Spasm Musculoskeletal: Yes: Back pain, Muscle Pain Extremities: Yes: Within Normal Limits, Normal Range of Motion, Tremors 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: 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, Fully Oriented, Alert, Motor Strength 5/5 Integumentary: Yes: Dry Lymphatic: Yes: Within Normal Limits - Diagnostic (1) Anxiety with depression Current Visit: No Status: Chronic (2) Asthma Current Visit: No Status: Chronic Qualifiers: Asthma complication type: uncomplicated (3) H/O thyroid cyst Current Visit: No Status: Chronic (4) Hypothyroid Current Visit: No Status: Chronic (5) Obesity Current Visit: No Status: Chronic Qualifiers: Obesity severity: morbid (6) Opioid dependence with withdrawal Current Visit: No Status: Chronic (7) S/P laparoscopic cholecystectomy Current Visit: No Status: Chronic (8) TMJ (temporomandibular joint disorder) Current Visit: No Status: Chronic (9) Uncomplicated sedative, hypnotic or anxiolytic withdrawal Current Visit: No Status: Chronic Cleared for Admission [facility] - Detox or Rehab [facility] Level of Care: Medically Managed Detox Regimen/Protocol: Methadone/Valium [facility] Breath Alcohol Content Breath Alcohol Content: 0 Urine Pregancy Test - Result Urine Test Results: Negative- NO Line Present Urine Drug Screen - Results Drug Screen Negative: No Urine Drug Screen Results: OPI-Opiates, BZO-Benzodiazepines, TCA-Tricyclic Antidepress
[2016-07-19] MEDS ORDERED: diphenhydrAMINE HCL 50 MG CAPSULE PO PRN (13:31)
[2016-07-19] MEDS ORDERED: ACETAMINOPHEN 325 MG TABLET (FP) PO PRN (13:31)
[2016-07-19] MEDS ORDERED: LOPERAMIDE HCL 2 MG CAPSULE PO PRN (13:31)
[2016-07-19] MEDS ORDERED: IBUPROFEN 400 MG TABLET (FP) PO PRN (13:31)
[2016-07-19] MEDS ORDERED: P-EPHED 60MG/TRIPROLIDI 2.5MG TABLET PO PRN (13:31)
[2016-07-19] MEDS ORDERED: MAG HYDROX/AL HYDROX/SIMETH 30 ML UNIT-DOSE CUP PO PRN (13:31)
[2016-07-19] MEDS ORDERED: MENTHOL/PHENOL 1 EACH UD MM PRN (13:31)
[2016-07-19] MEDS ORDERED: MAGNESIUM CITRATE 300 ML BOTTLE PO PRN (13:31)
[2016-07-19] MEDS ORDERED: MAGNESIUM HYDROX 2400MG/30ML ORAL SUSPENSION 30 ML CUP PO PRN (13:31)
[2016-07-19] MEDS ORDERED: guaiFENesin/D-METHORPHAN HB 10 ML UNIT-DOSE CUPS PO PRN (13:31)
[2016-07-19] MEDS ORDERED: ALBUTEROL SO4 6.7 GM HFA INHALER IH PRN (13:35)
[2016-07-19] MEDS ORDERED: diazePAM 5 MG TABLET PO ONE (14:26)
[2016-07-19] MEDS ORDERED: METHADONE HCL 10 MG TABLET (FOR DETOX USE ONLY) PO ONE ×2 (14:28→23:00)
[2016-07-19 18:09] LABS: URINE APPEARANCE CLEAR; URINE BILIRUBIN NEGATIVE (NEGATIVE); URINE COLOR YELLOW; URINE GLUCOSE (UA) NEGATIVE (NEGATIVE); URINE KETONE 1+ (NEGATIVE); URINE LEUK ESTERASE NEGATIVE (NEGATIVE); URINE NITRITE NEGATIVE (NEGATIVE); URINE PROTEIN NEGATIVE (NEGATIVE); URINE UROBILINOGEN 2.0 E.U/dl E.U./dl (0.2-1.0)
[2016-07-19 18:18] LABS: URINE BLOOD 1+ (NEGATIVE)
[2016-07-19 18:31] LABS: URINE BACTERIA RARE /hpf (NONE SEEN); URINE MUCUS FEW; URINE RBC 1 /hpf (0-3); URINE WBC 1 /hpf (3-5)
[2016-07-19] MEDS: diazePAM 5 MG TABLET PO PRN (19:40)
[2016-07-19] MEDS: THIAMINE HCL 100 MG TABLET (FP) PO SCH (22:11)
[2016-07-19] MEDS: diazePAM 5 MG TABLET PO SCH (22:11)
[2016-07-20] MEDS: diazePAM 5 MG TABLET PO PRN ×3 (03:02→17:13)
[2016-07-20] MEDS: diazePAM 5 MG TABLET PO SCH ×3 (05:54→22:21)
[2016-07-20] MEDS: LEVOTHYROXINE NA 25 MCG TABLET (FP) PO SCH (06:36)
--- NOTE | 2016-07-20 09:19 | CONSULT ---
[facility] Psychiatric Consult - Data Date of interview: 07/20/16 Admission source: [facility] Identifying data: This is 36 years old obese female with psychiatric hospitalization history intoxicated with: Opioids and Xanax Substance Abuse History: - Smoking Cessation. Smoking history: Never smoked. - Substance & Tx. History. Hx Alcohol Use: No. Hx Substance Use: Yes. Substance Use Type: Heroin, Tranquilizers. Hx Substance Use Treatment: Yes ( [facility] 05/25/16 TO 05/30/16). - Substances Abused. Heroin. Route: Inhalation. Frequency: Daily. Amount used: 40 bags. Age of first use: 30. Date of Last Use: 07/18/16. Alprazolam (Xanax). Route: Oral. Frequency: Daily. Amount used: 8-10 mg. Age of first use: 26. Date of Last Use: 07/18/16 Medical History: Morbid Obesity, Hypothyroidism, Asthma, Psychiatric History: Patient rep[orts history of depressiojn and anxiety, reports taking prior to admission: Elavbil 50mg po bid. Gabapentin 1200mg po qhs. Reports history of unclear psychiatrioc hsopitalization on 2008 at [facility] Physical/Sexual Abuse/Trauma History: Denies Additional Comment: Elavbil 50mg po bid. Gabapentin 1200mg po qhs Mental Status Exam - Mental Status Exam Alert and Oriented to: Person Cognitive Function: Fair Patient Appearance: Unkempt Mood: Sad Affect: Flat Patient Behavior: Cooperative Speech Pattern: Appropriate Voice Loudness: Mildly Soft/Quiet Thought Process: Goal Oriented Thought Disorder: Being Controlled Hallucinations: Denies Suicidal Ideation: Denies Homicidal Ideation: Denies Insight/Judgement: Fair Sleep: Difficulty falling asleep Appetite: Weight gain Muscle strength/Tone: Mild Hypotonicity Gait/Station: Shuffling Additional Comments: Elavbil 50mg po bid. Gabapentin 1200mg po qhs Psychiatric Findings - Problem List ([place] 1, 2,3) (1) Anxiety with depression Current Visit: No Status: Chronic (2) Hypothyroid Current Visit: No Status: Chronic (3) Opioid dependence with withdrawal Current Visit: No Status: Chronic (4) Substance-induced anxiety disorder Current Visit: No Status: Chronic (5) Uncomplicated sedative, hypnotic or anxiolytic withdrawal Current Visit: No Status: Chronic - Initial Treatment Plan Initial Treatment Plan: Elavbil 50mg po bid. Gabapentin 1200mg po qhs
[2016-07-20 09:49] LABS: MCH 29.1 pg (25.7-33.7); MCHC 33.3 g/dl (32.0-36.0); MEAN CELL VOLUME 87.6 fl (80-96); MEAN PLT VOLUME 9.5 fl (7.5-11.1); PLATELET COUNT 247 K/MM3 (134-434); RDW 12.8 % (11.6-15.6); WHITE BLOOD COUNT 8.2 K/mm3 (4.0-10.0)
[2016-07-20] MEDS ORDERED: METHADONE HCL 10 MG TABLET (FOR DETOX USE ONLY) PO SCH (10:00)
[2016-07-20] MEDS: PRENATAL VITAMINS W/ FOLIC ACID TABLET (FP) PO SCH (10:13)
[2016-07-20] MEDS: AMITRIPTYLINE HCL 25 MG TABLET (FP) PO SCH ×2 (10:14→22:20)
[2016-07-20 10:27] LABS: ALBUMIN 4.1 g/dl (3.4-5.0); ALK PHOS 79 U/L (45-117); ANION GAP 11 (8-16); BILIRUBIN,TOTAL 0.6 mg/dL (0.2-1.0); CALCIUM 9.5 mg/dL (8.5-10.1); CO2 27 mmol/L (21-32); COCKROFT - GAULT 162.4265; CREATININE 0.9 mg/dL (0.55-1.02); GLUCOSE,RANDOM 122 mg/dL (74-106); SGOT/AST 26 U/L (15-37); SGPT/ALT 39 U/L (12-78); TOT PROT 7.6 g/dl (6.4-8.2)
--- NOTE | 2016-07-20 10:41 | PN ---
[facility] CIWA - CIWA Score Nausea/Vomitin-No Nausea/No Vomiting Muscle Tremors: 4-Moderate,w/Arms Extend Anxiety: 3 Agitation: 4-Moderately Restless Paroxysmal Sweats: 3 Orientation: 0-Oriented Tacttile Disturbances: 0-None Auditory Disturbances: 0-None Visual Disturbances: 0-None Headache: 1-Very Mild CIWA-Ar Total Score: 15 BHS COWS - Scale Resting Pulse: 0= [place] 80 or Below Sweatin=Flushed/Facial Moisture Restless Observation: 1= Difficult to Sit Still Pupil Size: 0= Normal to Room Light Bone or Joint Aches: 2= Severe Diffuse Aches Runny Nose/ Eye Tearin= Runny Nose/Eyes GI Upset > 30mins: 1= Stomach Cramp Tremor Observation of Outstretched Hands: 2= Slight Tremor Visible Yawning Observation: 2= >3x During Session Anxiety or Irritability: 2=Irritable/Anxious Goose Flesh Skin: 0=Smooth Skin COWS Score: 14 S Progress Note (SOAP) Subjective: nausea sweats muscle aches restless interrupted sleep Objective: 07/20/16 10:40 Vital Signs Temperature 98.2 F 07/20/16 09:43 Pulse Rate 74 07/20/16 09:43 Respiratory Rate 18 07/20/16 09:43 Blood Pressure 138/89 07/20/16 09:43 O2 Sat by Pulse Oximetry (%) Laboratory Tests 07/19/16 07/20/16 07/20/16 17:01 06:00 06:00 WBC 8.2 RBC 4.82 Hgb 14.1 Hct 42.2 MCV 87.6 MCHC 33.3 RDW 12.8 Plt Count 247 MPV 9.5 D Sodium 142 Potassium 3.8 Chloride 104 Carbon Dioxide 27 Anion Gap 11 BUN 6 L D Creatinine 0.9 Creat Clearance w eGFR > 60 Random Glucose 122 H Calcium 9.5 Total Bilirubin 0.6 D AST 26 D ALT 39 Alkaline Phosphatase 79 D Total Protein 7.6 Albumin 4.1 Urine Color Yellow Urine Appearance Clear Urine pH 6.0 Ur Specific [place] 1.020 Urine Protein Negative Urine Glucose (UA) Negative Urine Ketones 1+ H Urine Blood 1+ H Urine Nitrite Negative Urine Bilirubin Negative Urine Urobilinogen 2.0 e.u/dl H Ur Leukocyte Esterase Negative Urine RBC 1 Urine WBC 1 Ur Epithelial Cells Few Urine Bacteria Rare Urine Mucus Few awake/alert ambulating no acute distress Assessment: 07/20/16 10:41 withdrawal sx Plan: continue detox increase fluids flexiril prn zofran prn
[2016-07-20] MEDS: CYCLOBENZAPRINE HCL 10 MG TABLET (FP) PO PRN ×2 (11:09→22:21)
--- NOTE | 2016-07-20 13:13 | EKG ---
Test Reason : Blood Pressure : / mmHG Vent. Rate : 058 BPM Atrial Rate : 058 BPM P-R Int : 132 ms QRS Dur : 098 ms QT Int : 426 ms P-R-T Axes : 045 046 024 degrees QTc Int : 418 ms SINUS BRADYCARDIA OTHERWISE NORMAL ECG WHEN COMPARED WITH ECG OF 25-MAY-2016 12:26, VENT. RATE HAS DECREASED BY 36 BPM NONSPECIFIC T WAVE ABNORMALITY NO LONGER EVIDENT IN ANTERIOR LEADS QT HAS SHORTENED Confirmed by FLORA MARTIN, JAREK ([id number]) on 07/20/2016 1:12:54 PM Referred By: Confirmed By:JAREK HINES MD
[2016-07-20] MEDS: GABAPENTIN 400 MG CAPSULE (FP) PO SCH (22:20)
[2016-07-20] MEDS: THIAMINE HCL 100 MG TABLET (FP) PO SCH (22:20)
[2016-07-20] MEDS: hydrOXYzine PAMOATE 50 MG CAPSULE (FP) PO PRN (22:21)
[2016-07-21] MEDS: diazePAM 5 MG TABLET PO PRN ×3 (05:59→17:53)
[2016-07-21] MEDS: LEVOTHYROXINE NA 25 MCG TABLET (FP) PO SCH (05:59)
[2016-07-21] MEDS: CYCLOBENZAPRINE HCL 10 MG TABLET (FP) PO PRN (10:29)
[2016-07-21] MEDS: PRENATAL VITAMINS W/ FOLIC ACID TABLET (FP) PO SCH (10:29)
[2016-07-21] MEDS: AMITRIPTYLINE HCL 25 MG TABLET (FP) PO SCH ×2 (10:29→22:21)
[2016-07-21] MEDS: METHADONE HCL 5 MG TABLET (FOR DETOX USE ONLY) PO SCH (10:30)
[2016-07-21] MEDS: ONDANSETRON *ODT* 4 MG TABLET SL PRN (10:30)
[2016-07-21] MEDS: diazePAM 5 MG TABLET PO SCH ×2 (10:30→22:20)
--- NOTE | 2016-07-21 11:50 | PN ---
[facility] CIWA - CIWA Score Nausea/Vomitin Muscle Tremors: 2 Anxiety: 3 Agitation: 2 Paroxysmal Sweats: 3 Orientation: 0-Oriented Tacttile Disturbances: 0-None Auditory Disturbances: 2-Mild Harshness/Frighten Visual Disturbances: 2-Mild Sensitivity Headache: 2-Mild CIWA-Ar Total Score: 18 BHS COWS - Scale Resting Pulse: 0= [place] 80 or Below Sweatin= Chills/Flushing Restless Observation: 0= Sits Still Pupil Size: 0= Normal to Room Light Bone or Joint Aches: 2= Severe Diffuse Aches Runny Nose/ Eye Tearin= Runny Nose/Eyes GI Upset > 30mins: 2= Nausea/Diarrhea Tremor Observation of Outstretched Hands: 2= Slight Tremor Visible Yawning Observation: 1= 1-2x During Session Anxiety or Irritability: 2=Irritable/Anxious Goose Flesh Skin: 3=Piloerection COWS Score: 15 S Progress Note (SOAP) Subjective: Stomach Cramping, Sweating, Interrupted Sleep, Diarrhea, Anxious, H/A, Body Aches. Objective: PT. A & O X 3. 07/21/16 11:47 Vital Signs Temperature 98.1 F 07/21/16 10:00 Pulse Rate 73 07/21/16 10:00 Respiratory Rate 16 07/21/16 10:00 Blood Pressure 123/83 07/21/16 10:00 O2 Sat by Pulse Oximetry (%) Laboratory Tests 07/19/16 07/20/16 07/20/16 17:01 06:00 06:00 WBC 8.2 RBC 4.82 Hgb 14.1 Hct 42.2 MCV 87.6 MCHC 33.3 RDW 12.8 Plt Count 247 MPV 9.5 D Sodium 142 Potassium 3.8 Chloride 104 Carbon Dioxide 27 Anion Gap 11 BUN 6 L D Creatinine 0.9 Creat Clearance w eGFR > 60 Random Glucose 122 H Calcium 9.5 Total Bilirubin 0.6 D AST 26 D ALT 39 Alkaline Phosphatase 79 D Total Protein 7.6 Albumin 4.1 Urine Color Yellow Urine Appearance Clear Urine pH 6.0 Ur Specific [place] 1.020 Urine Protein Negative Urine Glucose (UA) Negative Urine Ketones 1+ H Urine Blood 1+ H Urine Nitrite Negative Urine Bilirubin Negative Urine Urobilinogen 2.0 e.u/dl H Ur Leukocyte Esterase Negative Urine RBC 1 Urine WBC 1 Ur Epithelial Cells Few Urine Bacteria Rare Urine Mucus Few RPR Titer 07/20/16 06:00 WBC RBC Hgb Hct MCV MCHC RDW Plt Count MPV Sodium Potassium Chloride Carbon Dioxide Anion Gap BUN Creatinine Creat Clearance w eGFR Random Glucose Calcium Total Bilirubin AST ALT Alkaline Phosphatase Total Protein Albumin Urine Color Urine Appearance Urine pH Ur Specific [place] Urine Protein Urine Glucose (UA) Urine Ketones Urine Blood Urine Nitrite Urine Bilirubin Urine Urobilinogen Ur Leukocyte Esterase Urine RBC Urine WBC Ur Epithelial Cells Urine Bacteria Urine Mucus RPR Titer Nonreactive LABS NOTED. Assessment: 07/21/16 11:48 WITHDRAWAL SYMPTOMS. Plan: CONTINUE DETOX.
[2016-07-21] MEDS: THIAMINE HCL 100 MG TABLET (FP) PO SCH (22:20)
[2016-07-21] MEDS: GABAPENTIN 400 MG CAPSULE (FP) PO SCH (22:23)
[2016-07-22] MEDS: diazePAM 5 MG TABLET PO PRN ×2 (05:36→10:26)
[2016-07-22] MEDS: LEVOTHYROXINE NA 25 MCG TABLET (FP) PO SCH (06:02)
[2016-07-22] MEDS: AMITRIPTYLINE HCL 25 MG TABLET (FP) PO SCH ×2 (10:26→22:47)
[2016-07-22] MEDS: METHADONE HCL 5 MG TABLET (FOR DETOX USE ONLY) PO SCH (10:26)
[2016-07-22] MEDS: PRENATAL VITAMINS W/ FOLIC ACID TABLET (FP) PO SCH (10:26)
[2016-07-22] MEDS: CYCLOBENZAPRINE HCL 10 MG TABLET (FP) PO PRN ×2 (10:26→22:48)
[2016-07-22] MEDS: diazePAM 5 MG TABLET PO SCH ×2 (10:27→22:47)
[2016-07-22] MEDS: hydrOXYzine PAMOATE 50 MG CAPSULE (FP) PO PRN ×3 (11:59→22:48)
[2016-07-22] MEDS: ONDANSETRON *ODT* 4 MG TABLET SL PRN (12:01)
--- NOTE | 2016-07-22 15:07 | PN ---
[facility] Progress Note (SOAP) Subjective: Interrupted Sleep, H/A, Body Aches, Sweating. Objective: PT. A & O X 3, OBSERVED AMBULATING ON UNIT. 07/22/16 15:05 Vital Signs Temperature 100 F H 07/22/16 14:16 Pulse Rate 74 07/22/16 14:16 Respiratory Rate 18 07/22/16 14:16 Blood Pressure 132/73 07/22/16 14:16 O2 Sat by Pulse Oximetry (%) Laboratory Tests 07/19/16 07/20/16 07/20/16 17:01 06:00 06:00 WBC 8.2 RBC 4.82 Hgb 14.1 Hct 42.2 MCV 87.6 MCHC 33.3 RDW 12.8 Plt Count 247 MPV 9.5 D Sodium 142 Potassium 3.8 Chloride 104 Carbon Dioxide 27 Anion Gap 11 BUN 6 L D Creatinine 0.9 Creat Clearance w eGFR > 60 Random Glucose 122 H Calcium 9.5 Total Bilirubin 0.6 D AST 26 D ALT 39 Alkaline Phosphatase 79 D Total Protein 7.6 Albumin 4.1 Urine Color Yellow Urine Appearance Clear Urine pH 6.0 Ur Specific [place] 1.020 Urine Protein Negative Urine Glucose (UA) Negative Urine Ketones 1+ H Urine Blood 1+ H Urine Nitrite Negative Urine Bilirubin Negative Urine Urobilinogen 2.0 e.u/dl H Ur Leukocyte Esterase Negative Urine RBC 1 Urine WBC 1 Ur Epithelial Cells Few Urine Bacteria Rare Urine Mucus Few RPR Titer 07/20/16 06:00 WBC RBC Hgb Hct MCV MCHC RDW Plt Count MPV Sodium Potassium Chloride Carbon Dioxide Anion Gap BUN Creatinine Creat Clearance w eGFR Random Glucose Calcium Total Bilirubin AST ALT Alkaline Phosphatase Total Protein Albumin Urine Color Urine Appearance Urine pH Ur Specific [place] Urine Protein Urine Glucose (UA) Urine Ketones Urine Blood Urine Nitrite Urine Bilirubin Urine Urobilinogen Ur Leukocyte Esterase Urine RBC Urine WBC Ur Epithelial Cells Urine Bacteria Urine Mucus RPR Titer Nonreactive LABS NOTED. Assessment: 07/22/16 15:06 WITHDRAWAL SYMPTOMS. Plan: CONTINUE DETOX. INCREASE PO FLUIDS.
--- NOTE | 2016-07-22 15:11 | PN ---
[facility] Progress Note Note: In AM, Pt. reported recent onset (approx. 20 min.) of chest pain. Pt. pointed to sternal / epigastric area as affected site. Pt. describes pain as sharp. Pt. denies nausea / vomiting. Pt. reports history of chest pain brought on by extreme anxiety. VS: BP: 125/78; P: 84; RR: 18: 02: 97% Stat ECG ordered: Result Noted (Normal Sinus Rhythm). Lung sounds auscultated clear and equal bilaterally. Pt denies SOB / Cough. PRN Dose of Albuterol Inhaler administered. PRN Vistaril administered for Anxiety. Will Continue to monitor. Ramesh Thomas NP
[2016-07-22] MEDS: THIAMINE HCL 100 MG TABLET (FP) PO SCH (22:47)
[2016-07-22] MEDS: GABAPENTIN 400 MG CAPSULE (FP) PO SCH (22:47)
[2016-07-23] MEDS: LEVOTHYROXINE NA 25 MCG TABLET (FP) PO SCH (07:02)
[2016-07-23] MEDS ORDERED: diazePAM 5 MG TABLET PO SCH (10:00)
[2016-07-23] MEDS ORDERED: METHADONE HCL 10 MG TABLET (FOR DETOX USE ONLY) PO SCH (10:00)
[2016-07-23] MEDS: AMITRIPTYLINE HCL 25 MG TABLET (FP) PO SCH ×2 (10:23→22:08)
[2016-07-23] MEDS: hydrOXYzine PAMOATE 50 MG CAPSULE (FP) PO PRN ×2 (10:23→17:42)
[2016-07-23] MEDS: CYCLOBENZAPRINE HCL 10 MG TABLET (FP) PO PRN ×2 (10:23→22:08)
[2016-07-23] MEDS: ONDANSETRON *ODT* 4 MG TABLET SL PRN (10:23)
[2016-07-23] MEDS: PRENATAL VITAMINS W/ FOLIC ACID TABLET (FP) PO SCH (10:23)
--- NOTE | 2016-07-23 12:33 | PN ---
[facility] Progress Note (SOAP) Subjective: Sweating,interrupted sleep,restless Objective: 07/23/16 12:32 Vital Signs - 8 hr 07/23/16 07/23/16 06:36 11:08 Temperature 97.5 F L 98.1 F Pulse Rate 71 83 Respiratory 20 20 Rate Blood Pressure 130/86 110/77 Laboratory Last Values WBC 8.2 K/mm3 (4.0-10.0) 07/20/16 06:00 RBC 4.82 M/mm3 (3.60-5.2) 07/20/16 06:00 Hgb 14.1 GM/dL (10.7-15.3) 07/20/16 06:00 Hct 42.2 % (32.4-45.2) 07/20/16 06:00 MCV 87.6 fl (80-96) 07/20/16 06:00 MCHC 33.3 g/dl (32.0-36.0) 07/20/16 06:00 RDW 12.8 % (11.6-15.6) 07/20/16 06:00 Plt Count 247 K/MM3 (134-434) 07/20/16 06:00 MPV 9.5 fl (7.5-11.1) D 07/20/16 06:00 Sodium 142 mmol/L (136-145) 07/20/16 06:00 Potassium 3.8 mmol/L (3.5-5.1) 07/20/16 06:00 Chloride 104 mmol/L (98-107) 07/20/16 06:00 Carbon Dioxide 27 mmol/L (21-32) 07/20/16 06:00 Anion Gap 11 (8-16) 07/20/16 06:00 BUN 6 mg/dL (7-18) L D 07/20/16 06:00 Creatinine 0.9 mg/dL (0.55-1.02) 07/20/16 06:00 Creat Clearance w eGFR > 60 (>60) 07/20/16 06:00 Random Glucose 122 mg/dL (74-106) H 07/20/16 06:00 Calcium 9.5 mg/dL (8.5-10.1) 07/20/16 06:00 Total Bilirubin 0.6 mg/dL (0.2-1.0) D 07/20/16 06:00 AST 26 U/L (15-37) D 07/20/16 06:00 ALT 39 U/L (12-78) 07/20/16 06:00 Alkaline Phosphatase 79 U/L (45-117) D 07/20/16 06:00 Total Protein 7.6 g/dl (6.4-8.2) 07/20/16 06:00 Albumin 4.1 g/dl (3.4-5.0) 07/20/16 06:00 Urine Color Yellow 07/19/16 17:01 Urine Appearance Clear 07/19/16 17:01 Urine pH 6.0 (5.0-8.0) 07/19/16 17:01 Ur Specific [place] 1.020 (1.005-1.025) 07/19/16 17:01 Urine Protein Negative (NEGATIVE) 07/19/16 17:01 Urine Glucose (UA) Negative (NEGATIVE) 07/19/16 17:01 Urine Ketones 1+ (NEGATIVE) H 07/19/16 17:01 Urine Blood 1+ (NEGATIVE) H 07/19/16 17:01 Urine Nitrite Negative (NEGATIVE) 07/19/16 17:01 Urine Bilirubin Negative (NEGATIVE) 07/19/16 17:01 Urine Urobilinogen 2.0 e.u/dl E.U./dl (0.2-1.0) H 07/19/16 17:01 Ur Leukocyte Esterase Negative (NEGATIVE) 07/19/16 17:01 Urine RBC 1 /hpf (0-3) 07/19/16 17:01 Urine WBC 1 /hpf (3-5) 07/19/16 17:01 Ur Epithelial Cells Few /hpf (FEW) 07/19/16 17:01 Urine Bacteria Rare /hpf (NONE SEEN) 07/19/16 17:01 Urine Mucus Few 07/19/16 17:01 RPR Titer Nonreactive (NONREACTIVE) 07/20/16 06:00 labs noted Assessment: 07/23/16 12:33 Withdrawal sx. Plan: Continue detox
[2016-07-23] MEDS: GABAPENTIN 400 MG CAPSULE (FP) PO SCH (22:08)
[2016-07-23] MEDS: THIAMINE HCL 100 MG TABLET (FP) PO SCH (22:08)
[2016-07-24] MEDS ORDERED: METHADONE HCL 5 MG TABLET (FOR DETOX USE ONLY) PO SCH (06:00)
[2016-07-24 06:39] VITALS: BP 135/78; PULSE 59; TEMP 97.7
[2016-07-24] MEDS: LEVOTHYROXINE NA 25 MCG TABLET (FP) PO SCH (07:09)
--- NOTE | 2016-07-24 11:27 | EKG ---
Test Reason : Blood Pressure : / mmHG Vent. Rate : 080 BPM Atrial Rate : 080 BPM P-R Int : 134 ms QRS Dur : 088 ms QT Int : 388 ms P-R-T Axes : 045 023 017 degrees QTc Int : 447 ms NORMAL SINUS RHYTHM NORMAL ECG WHEN COMPARED WITH ECG OF 19-JUL-2016 14:04, NO SIGNIFICANT CHANGE WAS FOUND Confirmed by JULIÁN BENZ MD ([id number]) on 07/24/2016 11:27:17 AM Referred By: Confirmed By:JULIÁN BENZ MD
--- NOTE | 2016-07-24 14:01 | DS ---
[facility] Detox Discharge Summary Admission Date: 07/19/16 Discharge Date: 07/24/16 - History Present History: Opioid Dependence, Sedative Dependence Additional Comments: ADVISED PATIENT TO FOLLOW-UP WITH TRANSFER KNITTER AFTER DISCHARGE FROM DETOX FOR GENERAL MEDICAL ASSESSMENT. Pertinent Past History: Asthma, History of Thyroid Cyst, History of Enlarged Thyroid, Hypothyroidism. - Physical Exam Results Vital Signs: Vital Signs Temperature 97.7 F 07/24/16 06:39 Pulse Rate 59 L 07/24/16 06:39 Respiratory Rate 16 07/24/16 06:39 Blood Pressure 135/78 07/24/16 06:39 O2 Sat by Pulse Oximetry (%) Pertinent Admission Physical Exam Findings: WITHDRAWAL SYMPTOMS. Laboratory Tests 07/19/16 07/20/16 07/20/16 17:01 06:00 06:00 WBC 8.2 RBC 4.82 Hgb 14.1 Hct 42.2 MCV 87.6 MCHC 33.3 RDW 12.8 Plt Count 247 MPV 9.5 D Sodium 142 Potassium 3.8 Chloride 104 Carbon Dioxide 27 Anion Gap 11 BUN 6 L D Creatinine 0.9 Creat Clearance w eGFR > 60 Random Glucose 122 H Calcium 9.5 Total Bilirubin 0.6 D AST 26 D ALT 39 Alkaline Phosphatase 79 D Total Protein 7.6 Albumin 4.1 Urine Color Yellow Urine Appearance Clear Urine pH 6.0 Ur Specific [place] 1.020 Urine Protein Negative Urine Glucose (UA) Negative Urine Ketones 1+ H Urine Blood 1+ H Urine Nitrite Negative Urine Bilirubin Negative Urine Urobilinogen 2.0 e.u/dl H Ur Leukocyte Esterase Negative Urine RBC 1 Urine WBC 1 Ur Epithelial Cells Few Urine Bacteria Rare Urine Mucus Few RPR Titer 07/20/16 06:00 WBC RBC Hgb Hct MCV MCHC RDW Plt Count MPV Sodium Potassium Chloride Carbon Dioxide Anion Gap BUN Creatinine Creat Clearance w eGFR Random Glucose Calcium Total Bilirubin AST ALT Alkaline Phosphatase Total Protein Albumin Urine Color Urine Appearance Urine pH Ur Specific [place] Urine Protein Urine Glucose (UA) Urine Ketones Urine Blood Urine Nitrite Urine Bilirubin Urine Urobilinogen Ur Leukocyte Esterase Urine RBC Urine WBC Ur Epithelial Cells Urine Bacteria Urine Mucus RPR Titer Nonreactive LABS NOTED. - Treatment Hospital Course: Detox Protocol Followed, Detoxed Safely, Responded well, Discharged Condition Good Patient has Accepted a Rehab Referral to: PT. WILL PURSUE REHAB AT FUTURE DATE. 12-STEP/NA PROGRAMS RECOMMENDED. - Medication Discharge Medications: Ambulatory Orders Amitriptyline HCl [Elavil -] 50 mg PO BID 05/25/16 Gabapentin 1,200 mg PO HS 05/25/16 Famotidine [Pepcid -] 20 mg PO DAILY 07/19/16 Amitriptyline HCl [Elavil -] 50 mg PO BID #60 tablet 07/20/16 Gabapentin 1,200 mg PO HS #30 tablet 07/20/16 Albuterol Sulfate Inhaler - [Ventolin Hfa Inhaler -] 2 inh PO Q4H PRN #1 inhaler 07/24/16 Levothyroxine [Synthroid -] 25 mcg PO DAILY #30 mcg 07/24/16 - Diagnosis (1) Anxiety with depression Status: Chronic (2) Asthma Status: Chronic Qualifiers: Asthma severity: mild intermittent Asthma complication type: uncomplicated Qualified Code(s): J45.20 - Mild intermittent asthma, uncomplicated (3) H/O thyroid cyst Status: Chronic (4) Hypothyroid Status: Chronic Qualifiers: Hypothyroidism type: unspecified Qualified Code(s): E03.9 - Hypothyroidism, unspecified (5) Opioid dependence with withdrawal Status: Acute (6) S/P laparoscopic cholecystectomy Status: Chronic (7) Substance-induced anxiety disorder Status: Chronic (8) TMJ (temporomandibular joint disorder) Status: Chronic (9) Uncomplicated sedative, hypnotic or anxiolytic withdrawal Status: Acute - AMA Did Patient Leave Against Medical Advice: No
== END 2016-07-24 09:37 | disposition home or self-care (01) | DRG 773 ==
LOC: YASAS 09:39 → Y6N 13:35
PROVIDERS: ADMIT Internal Medicine Addiction Medicine; ATTEND Internal Medicine Addiction Medicine
PROC: HZ2ZZZZ Detoxification Services for Substance Abuse Treatment (ICD-10-PCS; principal; 2016-07-24)
DX: F11.23 Opioid dependence with withdrawal (principal); F13.230 Sedative, hypnotic or anxiolytic dependence with withdrawal, uncomplicated; F41.8 Other specified anxiety disorders; F19.24 Other psychoactive substance dependence with psychoactive substance-induced mood disorder; E03.9 Hypothyroidism, unspecified; E66.01 Morbid (severe) obesity due to excess calories; Z68.39 Body mass index [BMI] 39.0-39.9, adult
CPT/HCPCS: 36415; 80053; 81003; 81015; 85027; 86593; 93005; 93010

== ENCOUNTER 2019-09-06 13:02 | Inpatient (IN) | payer OTHER ==
[2019-09-06] MEDS ORDERED: SODIUM CHLORIDE 1,000 ML IV STA (13:24)
[2019-09-06] MEDS ORDERED: DALBAVANCIN HCL 1,500 MG in DEXTROSE 5%-WATER - 500 ML IVPB ONE (13:25)
[2019-09-06] MEDS ORDERED: ACETAMINOPHEN 1000 MG/100 ML VIAL (NON FORMULARY) IVPB ONE (13:25)
--- NOTE | 2019-09-06 13:57 | PDOC ---
Attending Attestation - Resident Resident Name: Patricio Grullon - HPI HPI: 09/06/19 14:25 Pt presents to the ED complaining of severe pain and swelling in her L antecubital fossa that started yesterday. Patient has a history of IVDA in the past and is febrile today, but adamantly denies current IV drug use. States that her last use was 07/10. Denies fever prior to today. States that she had a severe sunburn with blistering 10 days ago, and was treated with silvadene, which she was allergic to. Went back to urgent care and was started on clindamycin. presents today because her symptoms are worsening. States that the severe pain and swelling and the purlent drainage started this AM. 09/06/19 14:36 09/06/19 14:40 - Physicial Exam PE: 09/06/19 14:37 Agree with resident exam. Patient is alert and oriented and in no acute distress. LUE has an area of purlent drainage in the antecubital fossa. + 7 cm area of surrounding erythema and induration. ? area of fluctuance above the area of drainage. Patient is able to actively fully extend elbow and able to flex to 90 degrees. No tenderness or erythema to the elbow joint. 09/06/19 14:37 - Medical Decision Making 09/06/19 14:40 Pt presents to the ED with large area of cellulitis and abscess in antecubital fossa. + signs of systemic infection. + failure of outpatient therapy. PAtient is adamant that she has not abused IV since 07/10. She understands that the fever would be concerning for endocarditis if she was actively using. Will check blood cultures to evaluate for bacteremia. Will treat with IV vancomycin. Will perform I + D and check US to evaluate the extend of fluid collection. Will check labs and admit to medicine for severe cellulitis. 09/06/19 14:40 Discharge - Discharge Information Problems reviewed: Yes Clinical Impression/Diagnosis: Cellulitis Qualifiers: Site of cellulitis: extremity Site of cellulitis of extremity: upper extremity Laterality: left Qualified Code(s): L03.114 - Cellulitis of left upper limb - Admission Yes - Follow up/Referral - Patient Discharge Instructions - Post Discharge Activity
[2019-09-06] MEDS ORDERED: KETOROLAC TROMETHAMINE 30 MG/1 ML VIAL IVPUSH ONE (14:22)
[2019-09-06] MEDS ORDERED: VANCOMYCIN 2,000 MG in DEXTROSE 5%-WATER - 250 ML IVPB ONE (14:26)
[2019-09-06] MEDS ORDERED: ACETAMINOPHEN INJECTION 100 ML IVPB ONE (14:27)
[2019-09-06] MEDS ORDERED: KETOROLAC TROMETHAMINE 30 MG/1 ML VIAL ONE (14:27)
[2019-09-06] MEDS ORDERED: LIDOCAINE 2.5%/PRILOCAINE 2.5% (5 Gram/TUBE) TP ONE ×2 (14:30→14:51)
[2019-09-06] MEDS ORDERED: VANCOMYCIN 2,000 MG in DEXTROSE 5%-WATER - 500 ML IVPB ONE (14:37)
[2019-09-06 14:42] LABS: BASO % 0.5 % (0-2.0); EOS % 1.9 % (0-4.5); HEMATOCRIT 40.9 % (32.4-45.2); HEMOGLOBIN 13.7 GM/dL (10.7-15.3); LYMPH % 11.6 % (8-40); MCH 29.6 pg (25.7-33.7); MCHC 33.5 g/dl (32.0-36.0); MEAN CELL VOLUME 88.5 fl (80-96); MEAN PLT VOLUME 8.5 fl (7.5-11.1); MONO % 7.3 % (3.8-10.2); NEUT % 78.7 % (42.8-82.8); PLATELET COUNT 294 K/MM3 (134-434); RBC 4.62 M/mm3 (3.60-5.2); RDW 13.1 % (11.6-15.6)
[2019-09-06 14:45] LABS: URINE APPEARANCE CLOUDY; URINE BILIRUBIN NEGATIVE (NEGATIVE); URINE COLOR YELLOW; URINE GLUCOSE (UA) NEGATIVE (NEGATIVE); URINE KETONE NEGATIVE (NEGATIVE); URINE LEUK ESTERASE NEGATIVE (NEGATIVE); URINE NITRITE NEGATIVE (NEGATIVE); URINE PROTEIN TRACE (NEGATIVE)
[2019-09-06 14:47] LABS: HCG,QUALITATIVE URINE Negative
--- NOTE | 2019-09-06 15:03 | PDOC ---
History of Present Illness - General Chief Complaint: Abscess Boil Stated Complaint: LT ARM EDEMA Time Seen by Provider: 09/06/19 13:18 History Source: Patient - History of Present Illness Initial Comments: 09/06/19 14:51 39yo female with a history of IV drug use (insists that last use was 07/11/19), asthma, hypothyroidism, anxiety, PTSD who presents with an abscess on her left antecubital fossa. She states she got a second degree sunburn 10 days prior on her arms and legs, was given silvidine cream, had an allergic reaction to it because she has a sulfa allergy, and was seen in the ED. Then, yesterday, she went to urgent care because she began having pain, redness, and warmth in her left antecubital fossa. She was given clindamycin and a medication that starts with an R that she was unable to obtain. It got worse even with the clindamycin, enlarged, became more painful, and began draining pus, so she came the ED. Denies worse pain with movement of joint. Denies rapid expansion. She states that she was told she had a fever in triage, but does not feel febrile. Denies chills, night sweats, n/v, CP, SOB, rash. PMHX: as in HPI PSHX: cholecystectomy Meds: levothyrxine, chlonazepam, albuterol Allergies: sulfa, cephalasporins, peaches Tob: denies Etoh: denies Rec drugs: IV heroin, last used 07/11/19 PCP: Zoe MORE GENERAL/CONSTITUTIONAL: No fever or chills. No weakness. HEAD, EYES, EARS, NOSE AND THROAT: No change in vision. No ear pain or discharge. No sore throat. CARDIOVASCULAR: No chest pain or shortness of breath RESPIRATORY: No cough, wheezing, or hemoptysis. GASTROINTESTINAL: No nausea, vomiting, diarrhea or constipation. GENITOURINARY: No dysuria, frequency, or change in urination. MUSCULOSKELETAL: no muscle or joint pain SKIN: abscess on left AC fossa NEUROLOGIC: No headache, vertigo, loss of consciousness, or change in strength/sensation. ENDOCRINE: No increased thirst. No abnormal weight change HEMATOLOGIC/LYMPHATIC: No anemia, easy bleeding, or history of blood clots. ALLERGIC/IMMUNOLOGIC: No hives or skin allergy. PE GENERAL: Awake, alert, and fully oriented, in pain HEAD: No signs of trauma, normocephalic, atraumatic EYES: PERRLA, EOMI, sclera anicteric, conjunctiva clear ENT: hearing grossly normal, nares patent, oropharynx clear without exudates. Moist mucosa NECK: Normal ROM, supple, no lymphadenopathy, JVD, or masses LUNGS: No distress, speaks full sentences, clear to auscultation bilaterally HEART: Regular rate and rhythm, normal S1 and S2, no murmurs, rubs or gallops, peripheral pulses normal and equal bilaterally. ABDOMEN: Soft, nontender, normoactive bowel sounds. No guarding, no rebound. No masses EXTREMITIES : Normal inspection, Normal range of motion, no edema. No clubbing or cyanosis. NEUROLOGICAL: Cranial nerves II through XII grossly intact. Normal speech, normal gait, no focal sensorimotor deficits SKIN: abscess on left AC fossa with another tense area proximal to it. surrounding erythema. No join pain on the posterior. Normal inspection distal and proximal to the involved site. Ultrasound: pocket of fluid under the drainage site in the AC fossa with surrounding cobblestoning of the SQ tissue Assessment and Plan 39yo female with a history of IV drug use (insists that last use was 07/11/19), asthma, hypothyroidism, anxiety, PTSD who presents with an abscess on her left antecubital fossa. Febrile 100.4 in ED, but no systemic symptoms. Did not improve on clindamycin. Most likely an abscess with surrounding soft tissue infection. Not rapidly expanding and no gas, so low suspicion for necrotizing fascitis or gas gangrene. She adamantly denies recent IV drug use and chest pain, but endocarditis is on the differential. -Pain control with IV tylenol and toradol, and topical lidocaine -I and D -vancomycin 2g IV loading dose by weight -labs: WBC 12K w/o shift -admit 09/06/19 15:06 09/06/19 21:44 09/06/19 21:45 Past History - Medical History Allergies/Adverse Reactions: Allergies Allergy/AdvReac Type Severity Reaction Status Date / Time Cephalosporins Allergy Severe Swelling Verified 07/19/16 12:51 peach Allergy Severe Swelling Verified 07/19/16 12:51 Sulfa (Sulfonamide Allergy Severe Difficulty Verified 07/19/16 12:51 Antibiotics) Breathing Home Medications: Ambulatory Orders Amitriptyline HCl [Elavil -] 50 mg PO BID 05/25/16 Gabapentin 1,200 mg PO HS 05/25/16 Famotidine [Pepcid -] 20 mg PO DAILY 07/19/16 Amitriptyline HCl [Elavil -] 50 mg PO BID #60 tablet 07/20/16 Gabapentin 1,200 mg PO HS #30 tablet 07/20/16 Albuterol Sulfate Inhaler - [Ventolin Hfa Inhaler -] 2 inh PO Q4H PRN #1 inhaler 07/24/16 Levothyroxine [Synthroid -] 25 mcg PO DAILY #30 mcg 07/24/16 Anemia: No Asthma: Yes (Pt is on MDI.) Cancer: No Cardiac Disorders: No CVA: No COPD: No CHF: No Dementia: No Diabetes: No GI Disorders: No Disorders: No HTN: No Hypercholesterolemia: No Kidney Stones: No Liver Disease: No Seizures: No Thyroid Disease: Yes (ENLARGED THYROID AND THYROID CYST FOR 3 MONTHS) - Surgical History Cholecystectomy: Yes (2009 [facility] AT [facility]) - Reproductive History PID: No - Immunization History Td Vaccination: Yes TDAP Vaccination: Yes Immunization Up to Date: Yes - Psycho-Social/Smoking History Smoking History: Never smoked Have you smoked in the past 12 months: No - Substance Abuse Hx (Audit-C & DAST Scrn) How often the patient has a drink containing alcohol: Never Score: In Men: 4 or > Positive; In Women: 3 or > Positive: 0 Screen Result (Pos requires Nsg. Audit-10AR): Negative In the last yr the pt used illegal drug/Rx for NonMed reason: No Score: Yes response is considered Positive: 0 Screen Result (Positive result requires Nsg. DAST-10): Negative *Physical Exam - Vital Signs Last Vital Signs Temp Pulse Resp BP Pulse Ox 100.4 F H 88 16 154/82 97 09/06/19 13:18 09/06/19 13:18 09/06/19 13:18 09/06/19 13:18 09/06/19 13:18 Procedures - Incision and Drainage I&D Site: Right: Arm Anesthesia: other (topical lidocaine) Blade Size: 10 Attempts: 1 Plain Packing: No Complications: none Dressing: No ED Treatment Course - LABORATORY CBC & Chemistry Diagram: 09/06/19 14:22 09/06/19 14:22 - ADDITIONAL ORDERS Additional order review: Laboratory Results 09/06/19 14:22 Urine Color Yellow Urine Appearance Cloudy Urine pH 7.0 Ur Specific [place] 1.030 Urine Protein Trace Urine Glucose (UA) Negative Urine Ketones Negative Urine Blood Negative Urine Nitrite Negative Urine Bilirubin Negative Urine Urobilinogen 1.0 Ur Leukocyte Esterase Negative Urine HCG, Qual Negative 09/06/19 14:22 RBC 4.62 MCV 88.5 MCHC 33.5 RDW 13.1 MPV 8.5 D Neutrophils % 78.7 Lymphocytes % 11.6 Monocytes % 7.3 Eosinophils % 1.9 Basophils % 0.5 - Medications Given in the ED: ED Medications Discontinued Medications Generic Name Dose Route Start Last Admin Trade Name Dionte PRN Reason Stop Dose Admin Acetaminophen 1,000 mg 09/06/19 13:25 09/06/19 14:33 Ofirmev Injection - IVPB 09/06/19 13:26 1,000 mg ONCE ONE Administration Sodium Chloride 1,000 mls @ 1,000 mls/hr 09/06/19 13:24 09/06/19 14:32 Normal Saline - IV 09/06/19 14:23 1,000 mls/hr ASDIR STA Administration Ketorolac Tromethamine 30 mg 09/06/19 14:22 09/06/19 14:33 Toradol Injection - IVPUSH 09/06/19 14:23 30 mg ONCE ONE Administration Discharge - Discharge Information Problems reviewed: Yes Clinical Impression/Diagnosis: Cellulitis Qualifiers: Site of cellulitis: extremity Site of cellulitis of extremity: upper extremity Laterality: left Qualified Code(s): L03.114 - Cellulitis of left upper limb - Follow up/Referral - Patient Discharge Instructions - Post Discharge Activity
[2019-09-06 15:33] LABS: ALBUMIN 3.7 g/dl (3.4-5.0); BILIRUBIN,TOTAL 0.9 mg/dL (0.2-1); BLOOD UREA NITROGEN 10.9 mg/dL (7-18); CALCIUM 8.6 mg/dL (8.5-10.1); CREATININE 0.8 mg/dL (0.55-1.3); POTASSIUM 3.7 mmol/L (3.5-5.1); TOT PROT 7.6 g/dl (6.4-8.2)
[2019-09-06] MEDS ORDERED: morphine CARPU-JECT 4 MG/1 ML DISP.SYRIN IVPUSH ONE (16:49)
[2019-09-06] MEDS ORDERED: morphine SULFATE 4 MG/ML VIAL ONE (16:59)
[2019-09-06] MEDS ORDERED: MORPHINE SULFATE 2 MG/ML VIAL ONE (17:00)
--- NOTE | 2019-09-06 17:41 | HP ---
CHIEF COMPLAINT: left arm swelling and pain PCP: Zoe HISTORY OF PRESENT ILLNESS: 39 y/o female with hx of ivda -- states last use was in June and has been clean since then presents with a swollen and painful left arm. Pt reports being seen in urgent care yest evening and started on clinda -- this morning she woke up and noted worsening swelling to the left arm, redness and much more pain bringing her to the ED for further eval. Pt denies any fevers or chills at home. No trauma to the left arm, again denies any recent drug use. ER course was notable for: (1) abscess of left antecubital region (2) low grade temp 100.4 (3) s/p I and D of abscess in ED Recent Travel: Denies PAST MEDICAL HISTORY: as above, anxiety, hypothryodism PAST SURGICAL HISTORY: cholecystectomy Social History: Smoking: denies Alcohol: denies Drugs: hx of ivda -- no recent use since her ehab in June this year Allergies Cephalosporins Allergy (Severe, Verified 07/19/16 12:51) Swelling peach Allergy (Severe, Verified 07/19/16 12:51) Swelling Sulfa (Sulfonamide Antibiotics) Allergy (Severe, Verified 07/19/16 12:51) Difficulty Breathing HOME MEDICATIONS: Home Medications Medication Instructions Recorded Amitriptyline HCl [Elavil -] 50 mg PO BID 05/25/16 Gabapentin 1,200 mg PO HS 05/25/16 Famotidine [Pepcid -] 20 mg PO DAILY 07/19/16 Amitriptyline HCl [Elavil -] 50 mg PO BID #60 tablet 07/20/16 Gabapentin 1,200 mg PO HS #30 tablet 07/20/16 Albuterol Sulfate Inhaler - 2 inh PO Q4H PRN #1 inhaler 07/24/16 [Ventolin Hfa Inhaler -] Levothyroxine [Synthroid -] 25 mcg PO DAILY #30 mcg 07/24/16 REVIEW OF SYSTEMS CONSTITUTIONAL: Absent: fever, chills, diaphoresis, generalized weakness, malaise, loss of ap petite, weight change HEENT: Absent: rhinorrhea, nasal congestion, throat pain, throat swelling, difficulty swallowing, mouth swelling, ear pain, eye pain, visual changes CARDIOVASCULAR: Absent: chest pain, syncope, palpitations, irregular heart rate, lightheadedness, peripheral edema RESPIRATORY: Absent: cough, shortness of breath, dyspnea with exertion, orthopnea, wheezing, stridor, hemoptysis GASTROINTESTINAL: Absent: abdominal pain, abdominal distension, nausea, vomiting, diarrhea, constipation, melena, hematochezia GENITOURINARY: Absent: dysuria, frequency, urgency, hesitancy, hematuria, flank pain, genital pain MUSCULOSKELETAL: Absent: myalgia, arthralgia, joint swelling, back pain, neck pain POS LEFT ARM SWELLING, PAIN, REDNESS SKIN: Absent: rash, itching, pallor HEMATOLOGIC/IMMUNOLOGIC: Absent: easy bleeding, easy bruising, lymphadenopathy, frequent infections ENDOCRINE: Absent: unexplained weight gain, unexplained weight loss, heat intolerance, cold intolerance NEUROLOGIC: Absent: headache, focal weakness or paresthesias, dizziness, unsteady gait, seizure, mental status changes, bladder or bowel incontinence PSYCHIATRIC: Absent: anxiety, depression, suicidal or homicidal ideation, hallucinations. PHYSICAL EXAMINATION Vital Signs - 24 hr 09/06/19 13:18 Temperature 100.4 F H Pulse Rate 88 Respiratory 16 Rate Blood Pressure 154/82 O2 Sat by Pulse 97 Oximetry (%) GENERAL: Awake, alert, and fully oriented, in no acute distress. HEAD: Normal with no signs of trauma. EYES: extraocular movements intact, sclera anicteric, conjunctiva clear. No lid lag. EARS, NOSE, THROAT: Ears normal, nares patent, oropharynx clear without exudates. Moist mucous membranes. NECK: Normal range of motion, supple without lymphadenopathy, JVD, or masses. LUNGS: Breath sounds equal, clear to auscultation bilaterally. No wheezes, and no crackles. No accessory muscle use. HEART: Regular rate and rhythm, normal S1 and S2 without murmur, rub or gallop. ABDOMEN: Soft, nontender, not distended, normoactive bowel sounds, no guarding, no rebound, no masses. No hepatomegaly or splenomegaly. POS OBESE MUSCULOSKELETAL: Normal range of motion at all joints. No bony deformities or tenderness. No CVA tenderness. UPPER EXTREMITIES: 2+ pulses, warm, well-perfused. No cyanosis. No clubbing. No peripheral edema. LOWER EXTREMITIES: 2+ pulses, warm, well-perfused. No calf tenderness. No peripheral edema. NEUROLOGICAL: Cranial nerves II-XII intact. Normal speech. Normal gait. PSYCHIATRIC: Cooperative. Good eye contact. Appropriate mood and affect. SKIN: Warm, dry, normal turgor, no rashes or lesions noted, normal capillary refill. POS LEFT ANTECUBITAL REGION DRESSING C/D/I, POS WARMTH AND ERYTHEMA TO AREA Laboratory Results - last 24 hr 09/06/19 09/06/19 09/06/19 14:22 14:22 14:22 WBC 12.0 H RBC 4.62 Hgb 13.7 Hct 40.9 MCV 88.5 MCH 29.6 MCHC 33.5 RDW 13.1 Plt Count 294 MPV 8.5 D Absolute Neuts (auto) 9.5 H Neutrophils % 78.7 Lymphocytes % 11.6 Monocytes % 7.3 Eosinophils % 1.9 Basophils % 0.5 Nucleated RBC % 0 Sodium 139 Potassium 3.7 Chloride 103 Carbon Dioxide 28 Anion Gap 8 BUN 10.9 Creatinine 0.8 Est GFR (CKD-EPI)AfAm 108.39 Est GFR (CKD-EPI)NonAf 93.52 Random Glucose 89 Lactic Acid Calcium 8.6 Total Bilirubin 0.9 AST 19 ALT 20 Alkaline Phosphatase 92 Total Protein 7.6 Albumin 3.7 Urine Color Yellow Urine Appearance Cloudy Urine pH 7.0 Ur Specific [place] 1.030 Urine Protein Trace Urine Glucose (UA) Negative Urine Ketones Negative Urine Blood Negative Urine Nitrite Negative Urine Bilirubin Negative Urine Urobilinogen 1.0 Ur Leukocyte Esterase Negative Urine HCG, Qual Negative 09/06/19 14:22 WBC RBC Hgb Hct MCV MCH MCHC RDW Plt Count MPV Absolute Neuts (auto) Neutrophils % Lymphocytes % Monocytes % Eosinophils % Basophils % Nucleated RBC % Sodium Potassium Chloride Carbon Dioxide Anion Gap BUN Creatinine Est GFR (CKD-EPI)AfAm Est GFR (CKD-EPI)NonAf Random Glucose Lactic Acid 1.0 Calcium Total Bilirubin AST ALT Alkaline Phosphatase Total Protein Albumin Urine Color Urine Appearance Urine pH Ur Specific [place] Urine Protein Urine Glucose (UA) Urine Ketones Urine Blood Urine Nitrite Urine Bilirubin Urine Urobilinogen Ur Leukocyte Esterase Urine HCG, Qual EKG: NSR@69BPM, PAC ASSESSMENT/PLAN: 39 Y/O FEMALE WITH HX OF IVDA (REPORTS LAST USE IN JUNE 2019) ADMITTED WITH LEFT ANTECUBITAL ABSCESS WITH SURROUNDING CELLULITIS *LUE ABSCESS WITH CELLULITIS - FAILED OUTPT THERAPY S/P I AND D IN ED -- F/U CULTURES BLOOD CULTURES DRAWN LACTIC ACID LOW AT 1 S/P VANC IN ED -- WILL CONT FOR MRSA COVERAGE NEEDS GNR COVERAGE -- ID TO EVAL CHECK ECHO ALTHOUGH DID NOT HEAR MURMUR ON EXAM - ENDOCARDITIS WORKUP IF CULTU RES PERSISTENTLY POSITIVE *HYPOTHYROIDISM - CONT SYNTHROID *ANXIETY - RESTART KLONOPIN *DVT PROPHY - SQ HEPARIN Family Medical History Family Hx Cardiac Disorders: Father Other Family History: FATHER - COPD/CVA/HTN Problem List - Problem (1) Cellulitis Code(s): L03.90 - CELLULITIS, UNSPECIFIED Qualifiers: Site of cellulitis: extremity Site of cellulitis of extremity: upper extremity Laterality: left Qualified Code(s): L03.114 - Cellulitis of left upper limb (2) Heroin abuse Code(s): F11.10 - OPIOID ABUSE, UNCOMPLICATED (3) Anxiety Code(s): F41.9 - ANXIETY DISORDER, UNSPECIFIED Visit type - Emergency Visit Emergency Visit: Yes ED Registration Date: 09/06/19 Care time: The patient presented to the Emergency Department on the above date and was hospitalized for further evaluation of their emergent condition. - New Patient This patient is new to me today: Yes Date on this admission: 09/06/19 - Critical Care Critical Care patient: No
[2019-09-06] MEDS ORDERED: DEXTROSE 5%-WATER - 50 ML IVPB ONE (18:40)
[2019-09-06] MEDS ORDERED: AZTREONAM 1 GM VIAL (RESTRICTED TO ID) ONE (18:40)
[2019-09-06] MEDS ORDERED: ALBUTEROL SO4 HFA INHALER IH PRN (18:41)
[2019-09-06] MEDS: morphine SULFATE 4 MG/ML VIAL IVPUSH PRN ×2 (18:46→22:58)
[2019-09-06] MEDS: AZTREONAM 1 GM in DEXTROSE 5%-WATER - 50 ML IVPB SCH (18:47)
[2019-09-06] MEDS: LEVOTHYROXINE NA 25 MCG TABLET (FP) PO SCH (19:58)
[2019-09-06] MEDS: GABAPENTIN 400 MG CAPSULE PO SCH (21:18)
[2019-09-06] MEDS: AMITRIPTYLINE HCL 25 MG TABLET PO SCH (21:19)
[2019-09-06] MEDS: ACETAMINOPHEN 325 MG TABLET (FP) PO PRN (21:20)
[2019-09-06] MEDS: HEPARIN NA (PORCINE) 5,000 UNITS/ML 1ML VIAL SQ SCH (21:20)
[2019-09-06 21:30] VITALS: BMI 40.6
[2019-09-07] MEDS ORDERED: DEXTROSE 5%-WATER - 50 ML IVPB ONE ×3 (02:58→16:41)
[2019-09-07] MEDS ORDERED: AZTREONAM 1 GM VIAL (RESTRICTED TO ID) ONE ×3 (02:58→16:41)
[2019-09-07] MEDS: AZTREONAM 1 GM in DEXTROSE 5%-WATER - 50 ML IVPB SCH ×3 (03:00→18:20)
[2019-09-07] MEDS: morphine SULFATE 4 MG/ML VIAL IVPUSH PRN ×5 (03:14→20:55)
[2019-09-07] MEDS: HEPARIN NA (PORCINE) 5,000 UNITS/ML 1ML VIAL SQ SCH ×2 (06:14→13:14)
[2019-09-07] MEDS: LEVOTHYROXINE NA 25 MCG TABLET (FP) PO SCH (06:14)
[2019-09-07 07:56] LABS: HEMATOCRIT 34.9 % (32.4-45.2); HEMOGLOBIN 11.9 GM/dL (10.7-15.3); MCH 29.4 pg (25.7-33.7); MEAN CELL VOLUME 86.7 fl (80-96); MEAN PLT VOLUME 8.2 fl (7.5-11.1); PLATELET COUNT 260 K/MM3 (134-434); RBC 4.03 M/mm3 (3.60-5.2); RDW 13.3 % (11.6-15.6); WHITE BLOOD COUNT 6.5 K/mm3 (4.0-10.0)
[2019-09-07 08:05] LABS: BLOOD UREA NITROGEN 9.8 mg/dL (7-18); CREATININE 0.7 mg/dL (0.55-1.3); POTASSIUM 3.4 mmol/L (3.5-5.1)
[2019-09-07] MEDS ORDERED: POTASSIUM CHLORIDE ORAL LIQUID 20 MEQ/15 ML PO ONE (08:42)
--- NOTE | 2019-09-07 08:42 | PN ---
Progress Note, Physician Chief Complaint: Complaint of pain at I&D site left antecubital fossa History of Present Illness: 39-year-old female history of depression, hypothyroidism ex-IV drug abuse as per patient last use of heroin was seen June 2019, as per patient 2 weeks ago developed some rash on left arm after she had sunburn and and scratch the skin, initially blisters gradually developed erythema redness and exudative discharge and fever with worsening pain came to ED for evaluation, in the ED underwent IND admitted on the floor with IV antibiotic, wound culture prelim report shows staph aureus - Current Medication List Current Medications: Active Medications Acetaminophen (Tylenol -) 650 mg PO Q4H PRN PRN Reason: MODERATE PAIN Last Admin: 09/07/19 11:04 Dose: 650 mg Documented by: Albuterol Sulfate (Ventolin Hfa Inhaler -) 2 puff IH Q4H PRN PRN Reason: ASTHMA Amitriptyline HCl (Elavil -) 50 mg PO BID [facility] Last Admin: 09/07/19 09:04 Dose: Not Given Documented by: Clonazepam (Klonopin -) 2 mg PO BID PRN PRN Reason: ANXIETY Famotidine (Pepcid -) 20 mg PO DAILY [facility] Last Admin: 09/07/19 09:06 Dose: Not Given Documented by: Gabapentin (Neurontin -) 1,200 mg PO HS [facility] Last Admin: 09/06/19 21:18 Dose: Not Given Documented by: Heparin Sodium (Porcine) (Heparin -) 5,000 unit SQ TID [facility] Last Admin: 09/07/19 13:14 Dose: 5,000 unit Documented by: Aztreonam 1 gm/ Dextrose 50 mls @ 100 mls/hr IVPB Q8H-IV CHARLIE; Protocol Last Admin: 09/07/19 09:05 Dose: 100 mls/hr Documented by: Vancomycin HCl 1,500 mg/ (Dextrose) 500 mls @ 250 mls/hr IVPB Q12H [facility]; Protocol Levothyroxine Sodium (Synthroid -) 100 mcg PO DAILY@0700 [facility] Morphine Sulfate (Morphine Sulfate) 4 mg IVPUSH Q4H PRN PRN Reason: PAIN LEVEL 6-10 Last Admin: 09/07/19 12:32 Dose: 4 mg Documented by: - Objective Vital Signs: Vital Signs Temperature 97.9 F 09/07/19 08:33 Pulse Rate 77 09/07/19 08:33 Respiratory Rate 18 09/07/19 08:33 Blood Pressure 122/67 09/07/19 08:33 O2 Sat by Pulse Oximetry (%) 100 09/06/19 20:12 General: Young female, comfortable, not in distress HEENT mucous membranes moist, no anemia, no jaundice, PERRLA, no nystagmus Neck: No JVD, supple, no bruit, thyroid palpably normal, normal carotid pulsations. Chest: Nontender, clear to auscultation bilaterally CVS: S1-S2 regular no murmur/gallop/rub Abdomen: Nondistended, soft, bowel sounds present. 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 , no gross motor sensory deficit Labs: CBC, BMP 09/07/19 06:30 09/07/19 06:30 Problem List - Problems (1) Cellulitis Assessment/Plan: Purulent cellulitis left upper extremity patient denies adamantly any IV drug use, prelim report grew a staph we will continue vancomycin and aztreonam consider imaging if no improvement, and surgery consult for possible I&D follow- up culture and sensitivity Code(s): L03.90 - CELLULITIS, UNSPECIFIED Qualifiers: Site of cellulitis: extremity Site of cellulitis of extremity: upper extremity Laterality: left Qualified Code(s): L03.114 - Cellulitis of left upper limb (2) Opioid dependence with withdrawal Assessment/Plan: In the past urine abuse denies any recent use not on any maintenance program Problems reviewed: Yes Code(s): F11.23 - OPIOID DEPENDENCE WITH WITHDRAWAL (3) Obesity Assessment/Plan: BMI 40 follow-up nutrition and weight management as an outpatient. Problems reviewed: Yes Code(s): E66.9 - OBESITY, UNSPECIFIED (4) Hypothyroid Assessment/Plan: Continue home dose of levothyroxine 100 mcg daily Problems reviewed: Yes Code(s): E03.9 - HYPOTHYROIDISM, UNSPECIFIED Qualifiers: Hypothyroidism type: unspecified Qualified Code(s): E03.9 - Hypothyroidism, unspecified (5) Anxiety Assessment/Plan: Continue home medications Problems reviewed: Yes Code(s): F41.9 - ANXIETY DISORDER, UNSPECIFIED
[2019-09-07] MEDS: AMITRIPTYLINE HCL 25 MG TABLET PO SCH ×2 (09:04→21:51)
[2019-09-07] MEDS: FAMOTIDINE 20 MG TABLET PO SCH (09:06)
[2019-09-07] MEDS: ACETAMINOPHEN 325 MG TABLET (FP) PO PRN ×2 (11:04→18:45)
--- NOTE | 2019-09-07 11:28 | EKG ---
Test Reason : Blood Pressure : / mmHG Vent. Rate : 069 BPM Atrial Rate : 069 BPM P-R Int : 134 ms QRS Dur : 088 ms QT Int : 416 ms P-R-T Axes : 041 036 029 degrees QTc Int : 445 ms SINUS RHYTHM WITH PREMATURE ATRIAL COMPLEXES OTHERWISE NORMAL ECG WHEN COMPARED WITH ECG OF 11-JUL-2019 21:15, PREMATURE ATRIAL COMPLEXES ARE NOW PRESENT Confirmed by JAREK HINES MD ([id number]) on 09/07/2019 11:27:51 AM Referred By: Confirmed By:JAREK HINES MD
--- NOTE | 2019-09-07 11:53 | CON.ID ---
Consult Consult Specialty:: infectious diseases Referred by:: dr corona Reason for Consultation:: left cellulitis of the arm and absces - History of Present Illness Chief Complaint: swelling of the left arm with abscess and cellulitis History of Present Illness: 39 y/o female with hx of ivda states last use was in June and has been clean since then presents with a swollen and painful left arm. Pt reports being seen in urgent care yest evening and started on clinda -- this morning she woke up and noted worsening swelling to the left arm, redness and much more pain bringing her to the ED for further eval. Pt denies any fevers or chills at home. No trauma to the left arm, again denies any recent drug use. patient mentions that she had develiped multiple blisters and she pulled the skin out and there was pus present. patient was cx and awaiting blood cx as well as wound showing staph left arm is swollen and edematous - History Source History Provided By: Patient Limitations to Obtaining History: No Limitations - Past Medical History ...LMP: 05/15/16 ...: No - Alcohol/Substance Use Hx Alcohol Use: No - Smoking History Smoking history: Never smoked Have you smoked in the past 12 months: No Home Medications - Allergies Allergies/Adverse Reactions: Allergies Allergy/AdvReac Type Severity Reaction Status Date / Time Cephalosporins Allergy Severe Swelling Verified 07/19/16 12:51 peach Allergy Severe Swelling Verified 07/19/16 12:51 Sulfa (Sulfonamide Allergy Severe Difficulty Verified 07/19/16 12:51 Antibiotics) Breathing - Home Medications Home Medications: Ambulatory Orders Amitriptyline HCl [Elavil -] 50 mg PO BID 05/25/16 Gabapentin 1,200 mg PO HS 05/25/16 Famotidine [Pepcid -] 20 mg PO DAILY 07/19/16 Amitriptyline HCl [Elavil -] 50 mg PO BID #60 tablet 07/20/16 Gabapentin 1,200 mg PO HS #30 tablet 07/20/16 Albuterol Sulfate Inhaler - [Ventolin Hfa Inhaler -] 2 inh PO Q4H PRN #1 inhaler 07/24/16 Levothyroxine [Synthroid -] 25 mcg PO DAILY #30 mcg 07/24/16 Review of Systems - Review of Systems Constitutional: reports: No Symptoms Eyes: reports: No Symptoms HENT: reports: No Symptoms Neck: reports: No Symptoms Cardiovascular: reports: No Symptoms Respiratory: reports: No Symptoms Gastrointestinal: reports: No Symptoms Genitourinary: reports: No Symptoms Musculoskeletal: reports: Other Integumentary: reports: Erythema, Lesions, Wound, Other Neurological: reports: No Symptoms Endocrine: reports: No Symptoms Hematology/Lymphatic: reports: No Symptoms Psychiatric: reports: No Symptoms Physical Exam Vital Signs: Vital Signs Temperature 97.9 F 09/07/19 08:33 Pulse Rate 77 09/07/19 08:33 Respiratory Rate 18 09/07/19 09:00 Blood Pressure 122/67 09/07/19 08:33 O2 Sat by Pulse Oximetry (%) 100 09/07/19 09:00 Constitutional: Yes: Well Nourished, Calm, Mild Distress Eyes: Yes: Conjunctiva Clear HENT: Yes: Atraumatic, Normocephalic Neck: Yes: Supple, Trachea Midline Cardiovascular: Yes: Regular Rate and Rhythm Respiratory: Yes: Regular, CTA Bilaterally Gastrointestinal: Yes: Normal Bowel Sounds, Soft Musculoskeletal: Yes: WNL Extremities: Yes: Erythema (left arm), Other (wound on the cubital fossa with opening which has broken the skin) 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: Alert, Oriented Psychiatric: Yes: Alert, Oriented Labs: CBC, BMP 09/07/19 06:30 09/07/19 06:30 Assessment/Plan this 39 y/o obese patient with ivdabuse and abscess on the hand which wa drained growing staph plan will continue azactam and vanco get an mri/ct scan of the hand elevation of the hand echo wound care
[2019-09-07] MEDS: clonazePAM 2 MG TABLET PO PRN (14:08)
[2019-09-07] MEDS: ENOXAPARIN NA (PORCINE) 40 MG/0.4 ML DISP.SYRIN SQ SCH (14:35)
[2019-09-07] MEDS: VANCOMYCIN HCL 1,500 MG in DEXTROSE 5%-WATER - 500 ML IVPB SCH (14:35)
[2019-09-07] MEDS: GABAPENTIN 400 MG CAPSULE PO SCH (21:51)
[2019-09-08] MEDS ORDERED: PT OWN MED DRAWER 7, Y5N ONE (01:26)
[2019-09-08] MEDS: VANCOMYCIN HCL 1,500 MG in DEXTROSE 5%-WATER - 500 ML IVPB SCH ×2 (01:33→15:12)
[2019-09-08] MEDS: morphine SULFATE 4 MG/ML VIAL IVPUSH PRN ×5 (01:40→20:15)
[2019-09-08] MEDS: AZTREONAM 1 GM in DEXTROSE 5%-WATER - 50 ML IVPB SCH ×2 (02:58→09:15)
[2019-09-08] MEDS: LEVOTHYROXINE NA 100 MCG TABLET (FP) PO SCH (06:20)
[2019-09-08 07:34] LABS: BASO % 1.1 % (0-2.0); EOS % 7.7 % (0-4.5); HEMOGLOBIN 11.9 GM/dL (10.7-15.3); LYMPH % 28.8 % (8-40); MCH 29.5 pg (25.7-33.7); MEAN PLT VOLUME 7.9 fl (7.5-11.1); MONO % 10.4 % (3.8-10.2); PLATELET COUNT 274 K/MM3 (134-434); RBC 4.02 M/mm3 (3.60-5.2); RDW 13.4 % (11.6-15.6); WHITE BLOOD COUNT 5.5 K/mm3 (4.0-10.0)
[2019-09-08 07:55] LABS: BLOOD UREA NITROGEN 13.3 mg/dL (7-18); CALCIUM 8.3 mg/dL (8.5-10.1); CREATININE 0.8 mg/dL (0.55-1.3); POTASSIUM 3.8 mmol/L (3.5-5.1)
--- NOTE | 2019-09-08 08:01 | PN ---
Teaching Attending Note Name of Resident: Luann Jackson ATTENDING PHYSICIAN STATEMENT I saw and evaluated the patient. I reviewed the resident's note and discussed the case with the resident. I agree with the resident's findings and plan as documented. SUBJECTIVE: Patient remained afebrile redness and erythema decreasing, less pain OBJECTIVE: Vital Signs Temperature 97.7 F 09/08/19 06:00 Pulse Rate 68 09/08/19 06:00 Respiratory Rate 18 09/08/19 06:00 Blood Pressure 101/55 L 09/08/19 06:00 O2 Sat by Pulse Oximetry (%) 100 09/07/19 21:00 General: Young female, comfortable, not in distress HEENT mucous membranes moist, no anemia, no jaundice, PERRLA, no nystagmus Neck: No JVD, supple, no bruit, thyroid palpably normal, normal carotid pulsations. Chest: Nontender, clear to auscultation bilaterally CVS: S1-S2 regular no murmur/gallop/rub Abdomen: Nondistended, soft, bowel sounds present. Extremities: Less induration and swelling in left arm, No Calf tenderness, pul ses present [employer]ER: AO X3 , no gross motor sensory deficit CBC, BMP 09/08/19 07:01 09/08/19 07:01 Wound culture: Presumptive MRSA CT left arm: Report is pending ASSESSMENT AND PLAN:39-year-old female history of depression, hypothyroidism ex- IV drug abuse as per patient last use of heroin was seen June 2019, as per patient 2 weeks ago developed some rash on left arm after she had sunburn and and scratch the skin, initially blisters gradually developed erythema redness and exudative discharge and fever with worsening pain came to ED for evaluation, in the ED underwent IND admitted on the floor with IV antibiotic, wound culture prelim report shows possible MRSA patient is responding. Problem List - Problems (1) Cellulitis Assessment/Plan: Improving ,purulent cellulitis left upper extremity patient denies adamantly any IV drug use, prelim report grew presumptive MRSA we will continue vancomycin DC aztreonam , CT left arm report is pending , surgery consult for possible I&D follow-up final culture and sensitivity Code(s): L03.90 - CELLULITIS, UNSPECIFIED Qualifiers: Site of cellulitis: extremity Site of cellulitis of extremity: upper extremity Laterality: left Qualified Code(s): L03.114 - Cellulitis of left upper limb (2) Opioid dependence with withdrawal Assessment/Plan: In the past urine abuse denies any recent use not on any maintenance program Code(s): F11.23 - OPIOID DEPENDENCE WITH WITHDRAWAL (3) Obesity Assessment/Plan: BMI 40 follow-up nutrition and weight management as an outpatient. Code(s): E66.9 - OBESITY, UNSPECIFIED (4) Hypothyroid Code(s): E03.9 - HYPOTHYROIDISM, UNSPECIFIED Qualifiers: Hypothyroidism type: unspecified Qualified Code(s): E03.9 - Hypothyroidism, unspecified (5) Anxiety Code(s): F41.9 - ANXIETY DISORDER, UNSPECIFIED
[2019-09-08] MEDS ORDERED: DEXTROSE 5%-WATER - 50 ML IVPB ONE (08:35)
[2019-09-08] MEDS ORDERED: AZTREONAM 1 GM VIAL (RESTRICTED TO ID) ONE (08:35)
[2019-09-08] MEDS: ENOXAPARIN NA (PORCINE) 40 MG/0.4 ML DISP.SYRIN SQ SCH (09:13)
[2019-09-08] MEDS: AMITRIPTYLINE HCL 25 MG TABLET PO SCH ×2 (09:14→21:29)
[2019-09-08] MEDS: FAMOTIDINE 20 MG TABLET PO SCH (09:15)
[2019-09-08] MEDS: clonazePAM 2 MG TABLET PO PRN ×2 (09:16→20:14)
--- NOTE | 2019-09-08 11:25 | PN ---
Progress Note, Physician History of Present Illness: stable wound cx noted await results of ct scan - Current Medication List Current Medications: Active Medications Acetaminophen (Tylenol -) 650 mg PO Q4H PRN PRN Reason: MODERATE PAIN Last Admin: 09/07/19 18:45 Dose: 650 mg Documented by: Albuterol Sulfate (Ventolin Hfa Inhaler -) 2 puff IH Q4H PRN PRN Reason: ASTHMA Amitriptyline HCl (Elavil -) 50 mg PO BID [facility] Last Admin: 09/08/19 09:14 Dose: Not Given Documented by: Clonazepam (Klonopin -) 2 mg PO BID PRN PRN Reason: ANXIETY Last Admin: 09/08/19 09:16 Dose: 2 mg Documented by: Enoxaparin Sodium (Lovenox -) 40 mg SQ DAILY [facility] Last Admin: 09/08/19 09:13 Dose: 40 mg Documented by: Famotidine (Pepcid -) 20 mg PO DAILY [facility] Last Admin: 09/08/19 09:15 Dose: 20 mg Documented by: Gabapentin (Neurontin -) 1,200 mg PO HS [facility] Last Admin: 09/07/19 21:51 Dose: Not Given Documented by: Vancomycin HCl 1,500 mg/ (Dextrose) 500 mls @ 250 mls/hr IVPB Q12H [facility]; Protocol Last Admin: 09/08/19 01:33 Dose: 250 mls/hr Documented by: Levothyroxine Sodium (Synthroid -) 100 mcg PO DAILY@0700 [facility] Last Admin: 09/08/19 06:20 Dose: 100 mcg Documented by: Morphine Sulfate (Morphine Sulfate) 4 mg IVPUSH Q4H PRN PRN Reason: PAIN LEVEL 6-10 Last Admin: 09/08/19 10:48 Dose: 4 mg Documented by: - Objective Vital Signs: Vital Signs Temperature 97.7 F 09/08/19 06:00 Pulse Rate 68 09/08/19 06:00 Respiratory Rate 18 09/08/19 06:00 Blood Pressure 101/55 L 09/08/19 06:00 O2 Sat by Pulse Oximetry (%) 100 09/07/19 21:00 Constitutional: Yes: Calm, Mild Distress Cardiovascular: Yes: S1, S2 Respiratory: Yes: Regular, CTA Bilaterally Gastrointestinal: Yes: Normal Bowel Sounds, Soft Musculoskeletal: Yes: WNL Extremities: Yes: Erythema (and swelling of the left hand), Other Integumentary: Yes: Other Wound/Incision: Yes: Dressing Dry and Intact 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: Alert, Oriented Psychiatric: Yes: Alert, Oriented Labs: CBC, BMP 09/08/19 07:01 09/08/19 07:01 Assessment/Plan this 39 y/o obese patient with ivdabuse and abscess on the hand which wa drained growing staph plan wound cx noted will stop azactam await for ct scan results continue vanco follow vanco levels
--- NOTE | 2019-09-08 12:52 | ECHO ---
Name: MICHAELISABEL Exam:Adult Echocardiogram Study Date: 09/08/2019 11:57 AM Age: 39 yrs Reason For Study: R/O Vegetations Height: 66 in Weight: 250 lb BSA: 2.2 m2 MMode/2D Measurements & Calculations IVSd: 0.70 cm Ao root diam: 2.9 cm LVIDd: 5.4 cm LA dimension: 3.7 cm LVIDs: 3.5 cm ACS: 2.0 cm LVPWd: 0.71 cm EDV(Teich): 138.8 ml LVOT diam: 2.0 cm ESV(Teich): 50.9 ml LAV (MOD-bp): 85.0 ml TAPSE: 2.6 cm RV S Shine: 14.9 cm/sec Doppler Measurements & Calculations MV E max shine: 108.6 cm/sec Ao V2 max: 140.3 cm/sec MV A max shine: 93.8 cm/sec Ao max P.9 mmHg MV E/A: 1.2 Ao V2 mean: 101.8 cm/sec MV dec time: 0.18 sec Ao mean P.7 mmHg Ao V2 VTI: 31.9 cm ESDRAS(I,D): 2.7 cm2 ESDRAS(V,D): 2.7 cm2 LV V1 max P.3 mmHg MR max shine: 499.5 cm/sec LV V1 mean P.8 mmHg MR max P.8 mmHg LV V1 max: 114.6 cm/sec LV V1 mean: 78.8 cm/sec LV V1 VTI: 25.8 cm SV(LVOT): 84.9 ml TR max shine: 244.6 cm/sec TR max P.1 mmHg PA V2 max: 111.3 cm/sec Med Peak E' Shine: 10.5 cm/sec PA max P.0 mmHg Med E/e': 10.3 PA acc slope: 456.4 cm/sec2 Lat Peak E' Shine: 18.9 cm/sec PA acc time: 0.15 sec Lat E/e': 5.7 PA pr(Accel): 10.9 mmHg Pulm Sys Shine: 71.6 cm/sec Pulm Alex Shine: 37.0 cm/sec Pulm S/D: 1.9 Tech Comments TDS due to body habitus. Procedure Study Quality: Fair. The study was technically difficult with many images being suboptimal in quality . Left Ventricle The left ventricular size, thickness and function are normal. Ejection Fraction = 55-60%. Left Ventri cular Filling pattern is normal for age. Right Ventricle The right ventricle is normal in size and function. Atria The left atrium is mildly dilated. Right atrial size is normal. Mitral Valve The mitral valve is grossly normal. There is trace to mild mitral regurgitation. Tricuspid Valve The tricuspid valve is not well visualized, but is grossly normal. No tricuspid regurgitation. Aortic Valve The aortic valve is normal in structure and function. No hemodynamically significant valvular aortic stenosis. No aortic regurgitation is present. Pulmonic Valve The pulmonic valve is not well seen, but is grossly normal. There is no pulmonic valvular regurgitati on. Great Vessels The aortic root is normal size. Pericardium/Pleura There is no pericardial effusion. Interpretation Summary LV: Normal size,thickness and function: EF 55-60% RVL Normal Atria: Normal size Trace to mild MR otherwise no significant valvular dysfunction. Malcolm Guzman 09/08/2019 12:52 PM
--- NOTE | 2019-09-08 13:23 | PN ---
Physical Exam: SUBJECTIVE: Patient seen and examined at bedside this morning. No acute events overnight. Patient reports pain on the wound site, but denies any fevers, chills, headache, chest pain, SOB, abdominal pain. OBJECTIVE: Vital Signs Temperature 98.9 F 09/08/19 10:00 Pulse Rate 101 H 09/08/19 10:00 Respiratory Rate 18 09/08/19 10:00 Blood Pressure 109/66 09/08/19 10:00 O2 Sat by Pulse Oximetry (%) 97 09/08/19 09:00 GENERAL: The patient is awake, alert, and fully oriented, in no acute distress. NECK: supple. LUNGS: Breath sounds equal, clear to auscultation bilaterally HEART: Regular rate and rhythm, S1, S2 ABDOMEN: Soft, nontender, nondistended, normoactive bowel sounds EXTREMITIES: 2+ pulses, warm, well-perfused, no edema. LUE: +erythema, tenderness, swelling on the antecubital area NEUROLOGICAL: Cranial nerves II through XII grossly intact. Normal speech PSYCH: Normal mood, normal affect. SKIN: Warm, dry, normal turgor Laboratory Results - last 24 hr 09/07/19 09/08/19 09/08/19 14:58 07:01 07:01 WBC 5.5 RBC 4.02 Hgb 11.9 Hct 35.0 MCV 87.0 MCH 29.5 MCHC 34.0 RDW 13.4 Plt Count 274 MPV 7.9 Absolute Neuts (auto) 2.9 Neutrophils % 52.0 D Lymphocytes % 28.8 D Monocytes % 10.4 H Eosinophils % 7.7 H D Basophils % 1.1 Nucleated RBC % 0 Sodium 143 Potassium 3.8 Chloride 110 H Carbon Dioxide 27 Anion Gap 7 L BUN 13.3 Creatinine 0.8 Est GFR (CKD-EPI)AfAm 108.39 Est GFR (CKD-EPI)NonAf 93.52 Random Glucose 102 Calcium 8.3 L Beta HCG, Quant < 1.0 Active Medications Generic Name Dose Route Start Last Admin Trade Name Freq PRN Reason Stop Dose Admin Acetaminophen 650 mg 09/06/19 17:51 09/07/19 18:45 Tylenol - PO 650 mg Q4H PRN Administration MODERATE PAIN Albuterol Sulfate 2 puff 09/06/19 18:41 Ventolin Hfa Inhaler - IH Q4H PRN ASTHMA Amitriptyline HCl 50 mg 09/06/19 22:00 09/08/19 09:14 Elavil - PO Not Given BID [facility] Clonazepam 2 mg 09/07/19 13:43 09/08/19 09:16 Klonopin - PO 2 mg BID PRN Administration ANXIETY Enoxaparin Sodium 40 mg 09/07/19 14:15 09/08/19 09:13 Lovenox - SQ 40 mg DAILY [facility] Administration Famotidine 20 mg 09/07/19 10:00 09/08/19 09:15 Pepcid - PO 20 mg DAILY [facility] Administration Gabapentin 1,200 mg 09/06/19 22:00 09/07/19 21:51 Neurontin - PO Not Given HS [facility] Vancomycin HCl 1,500 mg/ 500 mls @ 250 mls/hr 09/07/19 14:00 09/08/19 01:33 Dextrose IVPB 250 mls/hr Q12H [facility] Administration Protocol Levothyroxine Sodium 100 mcg 09/07/19 13:43 09/08/19 06:20 Synthroid - PO 100 mcg DAILY@0700 [facility] Administration Morphine Sulfate 4 mg 09/06/19 17:51 09/08/19 10:48 Morphine Sulfate IVPUSH 4 mg Q4H PRN Administration PAIN LEVEL 6-10 ASSESSMENT/PLAN: Patient is a 39 year old female with past medical history of IVDU (reports last use in June), hypothyroidism, anxiety, presented to the ED for left forearm wound, admitted for left antecubital abscess with surrounding cellulitis. I&D done at the ER. #Left arm cellulitis -CT scan of LUE done -Wound cultures - presumptive MRSA -Continue Vancomycin 1500mg q12h -Vanc trough pending -Discontinue Aztreonam -Blood cultures no growth to date -ID (Dr. Woodall) consulted. REcommendations appreciated. -SUrgery (Dr. Mendez) consulted. Recommendations appreciated. #Hypothyroidism -Synthroid 100mcg daily #Anxiety -Continue Amitriptylline 50mg bid -Klonopin prn #FEN -Not on any standing fluids -Electrolytes wnl, routine bmp monitoring -Regular diet #Prophylaxis -Lovenox 40mg sq daily #Disposition -full code -continue to monitor on med surg Visit type - Emergency Visit Emergency Visit: Yes ED Registration Date: 09/06/19 Care time: The patient presented to the Emergency Department on the above date and was hospitalized for further evaluation of their emergent condition. - New Patient This patient is new to me today: Yes Date on this admission: 09/08/19 - Critical Care Critical Care patient: No ATTENDING PHYSICIAN STATEMENT I saw and evaluated the patient. I reviewed the resident's note and discussed the case with the resident. I agree with the resident's findings and plan as documented. SUBJECTIVE: OBJECTIVE: ASSESSMENT AND PLAN:
[2019-09-08] MEDS: GABAPENTIN 400 MG CAPSULE PO SCH (21:29)
[2019-09-09] MEDS: morphine SULFATE 4 MG/ML VIAL IVPUSH PRN ×4 (00:18→19:51)
[2019-09-09] MEDS ORDERED: PT OWN MED DRAWER 7, Y5N ONE ×4 (01:31→13:43)
[2019-09-09] MEDS: VANCOMYCIN HCL 1,500 MG in DEXTROSE 5%-WATER - 500 ML IVPB SCH ×2 (01:36→14:36)
[2019-09-09] MEDS: LEVOTHYROXINE NA 100 MCG TABLET (FP) PO SCH (06:06)
[2019-09-09 07:10] LABS: BASO % 0.8 % (0-2.0); EOS % 7.4 % (0-4.5); HEMATOCRIT 34.5 % (32.4-45.2); HEMOGLOBIN 11.8 GM/dL (10.7-15.3); LYMPH % 38.8 % (8-40); MCH 30.1 pg (25.7-33.7); MCHC 34.1 g/dl (32.0-36.0); MEAN CELL VOLUME 88.1 fl (80-96); MEAN PLT VOLUME 8.1 fl (7.5-11.1); MONO % 8.8 % (3.8-10.2); NEUT % 44.2 % (42.8-82.8); PLATELET COUNT 281 K/MM3 (134-434); RBC 3.92 M/mm3 (3.60-5.2); RDW 13.4 % (11.6-15.6); WHITE BLOOD COUNT 5.9 K/mm3 (4.0-10.0)
[2019-09-09 07:26] LABS: ALBUMIN 2.9 g/dl (3.4-5.0); BILIRUBIN,TOTAL 0.3 mg/dL (0.2-1); BLOOD UREA NITROGEN 9.6 mg/dL (7-18); CALCIUM 8.3 mg/dL (8.5-10.1); CREATININE 0.8 mg/dL (0.55-1.3); MAGNESIUM 2.1 mg/dL (1.8-2.4); POTASSIUM 3.7 mmol/L (3.5-5.1); TOT PROT 6.4 g/dl (6.4-8.2)
[2019-09-09] MEDS ORDERED: fentaNYL CITRATE 250 MCG/5 ML VIAL ONE (09:35)
[2019-09-09] MEDS ORDERED: PROPOFOL 20 ML ONE (09:35)
[2019-09-09] MEDS ORDERED: ROCURONIUM BROMIDE 50 MG/5 ML SYRINGE ONE (09:35)
[2019-09-09] MEDS ORDERED: MIDAZOLAM HCL 2 MG/2 ML SINGLE DOSE VIAL ONE (09:35)
[2019-09-09] MEDS: AMITRIPTYLINE HCL 25 MG TABLET PO SCH ×2 (09:59→21:01)
[2019-09-09] MEDS: FAMOTIDINE 20 MG TABLET PO SCH (09:59)
[2019-09-09] MEDS: ENOXAPARIN NA (PORCINE) 40 MG/0.4 ML DISP.SYRIN SQ SCH (09:59)
[2019-09-09] MEDS ORDERED: DEXAMETHASONE SOD PHOSPHATE 4 MG/1 ML VIAL ONE (10:10)
[2019-09-09] MEDS ORDERED: KETOROLAC TROMETHAMINE 30 MG/1 ML VIAL ONE (10:10)
[2019-09-09] MEDS ORDERED: LIDOCAINE HCL/PF 2% SDV 5ML VIAL ONE (10:10)
[2019-09-09] MEDS ORDERED: SEVOFLURANE 250 ML BTL ONE (10:22)
--- NOTE | 2019-09-09 10:45 | OP ---
Operative Note - Note: Operative Date: 09/09/19 Pre-Operative Diagnosis: Abscess Left antecubital fossa Operation: Incision & drainage of L antecubital fossa abscess Findings: purulent drainage and marked induration and fibrosis Post-Operative Diagnosis: Same as Pre-op Surgeon: Andi Mendez Application Defense Manager: Migue Castelan Anesthesiologist/ENTRY LEVEL ACCOUNT MANAGER: Mark Montemayor Anesthesia: General Specimens Removed: none Estimated Blood Loss (mls): 5
[2019-09-09] MEDS ORDERED: KETOROLAC TROMETHAMINE 15 MG/ML VIAL IVPUSH PRN (10:47)
[2019-09-09] MEDS ORDERED: oxyCODONE HCL 5 MG TABLET PO PRN (10:48)
[2019-09-09] MEDS ORDERED: PROMETHAZINE HCL 25 MG/1 ML VIAL IVPB PRN (10:48)
[2019-09-09] MEDS ORDERED: ONDANSETRON 4 MG/2 ML VIAL IVPUSH PRN (10:48)
[2019-09-09] MEDS: HYDROmorphone HCl 2 MG/ML VIAL IVPUSH ONE ×5 (11:13→14:59)
[2019-09-09] MEDS ORDERED: HYDROmorphone HCl 2 MG/ML VIAL ONE (11:13)
[2019-09-09] MEDS ORDERED: ALBUTEROL SO4 HFA INHALER IH PRN (11:22)
[2019-09-09] MEDS ORDERED: ACETAMINOPHEN 325 MG TABLET (FP) PO PRN (11:22)
--- NOTE | 2019-09-09 13:17 | PN ---
Progress Note, Physician History of Present Illness: stable no new issues improving - Current Medication List Current Medications: Active Medications Acetaminophen (Tylenol -) 650 mg PO Q4H PRN PRN Reason: PAIN 1-3 Albuterol Sulfate (Ventolin Hfa Inhaler -) 2 puff IH Q4H PRN PRN Reason: ASTHMA Amitriptyline HCl (Elavil -) 50 mg PO BID [facility] Clonazepam (Klonopin -) 2 mg PO BID PRN PRN Reason: ANXIETY Enoxaparin Sodium (Lovenox -) 40 mg SQ DAILY [facility] Famotidine (Pepcid -) 20 mg PO DAILY [facility] Gabapentin (Neurontin -) 1,200 mg PO HS [facility] Vancomycin HCl 1,500 mg/ (Dextrose) 500 mls @ 250 mls/hr IVPB Q12H [facility]; Protocol Ketorolac Tromethamine (Toradol Injection -) 15 mg IVPUSH Q6H PRN PRN Reason: PAIN LEVEL 6-10 Stop: 09/14/19 10:46 Levothyroxine Sodium (Synthroid -) 100 mcg PO DAILY@0700 [facility] Morphine Sulfate (Morphine Sulfate) 4 mg IVPUSH Q4H PRN PRN Reason: PAIN LEVEL 6-10 Ondansetron HCl (Zofran Injection) 4 mg IVPUSH Q6H PRN PRN Reason: NAUSEA AND/OR VOMITING Stop: 09/10/19 10:47 Oxycodone HCl (Roxicodone -) 10 mg PO Q4H PRN PRN Reason: PAIN 7-10; IF MORPHINE NOT WRK Oxycodone HCl (Roxicodone -) 5 mg PO Q4H PRN PRN Reason: PAIN LEVEL 4-6 Promethazine HCl (Phenergan Injection -) 12.5 mg IVPB Q6H PRN PRN Reason: NAUSEA-FOR RESCUE AFTER 15 MIN Stop: 09/10/19 10:47 - Objective Vital Signs: Vital Signs Temperature 97.8 F 09/09/19 12:45 Pulse Rate 60 09/09/19 12:45 Respiratory Rate 18 09/09/19 12:45 Blood Pressure 105/58 L 09/09/19 12:45 O2 Sat by Pulse Oximetry (%) 96 09/09/19 12:45 Constitutional: Yes: No Distress, Calm Cardiovascular: Yes: S1, S2 Respiratory: Yes: Regular, CTA Bilaterally Gastrointestinal: Yes: Normal Bowel Sounds, Soft Musculoskeletal: Yes: Other Extremities: Yes: Other Wound/Incision: Yes: Dressing Dry and Intact 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: Alert, Oriented Psychiatric: Yes: Alert, Oriented Labs: CBC, BMP 09/09/19 05:50 09/09/19 05:50 Assessment/Plan this 39 y/o obese patient with ivdabuse and abscess on the hand which wa drained growing staph plan wound cx noted ct scan results noted abscess noted consider a surgical opinion ct abx
--- NOTE | 2019-09-09 13:24 | PN ---
Physical Exam: SUBJECTIVE: Patient seen and examined OBJECTIVE: Vital Signs Temperature 97.8 F 09/09/19 12:45 Pulse Rate 60 09/09/19 12:45 Respiratory Rate 18 09/09/19 12:45 Blood Pressure 105/58 L 09/09/19 12:45 O2 Sat by Pulse Oximetry (%) 96 09/09/19 12:45 GENERAL: The patient is awake, alert, and fully oriented, in no acute distress. NECK: supple. LUNGS: Breath sounds equal, clear to auscultation bilaterally HEART: Regular rate and rhythm, S1, S2 ABDOMEN: Soft, nontender, nondistended, normoactive bowel sounds EXTREMITIES: 2+ pulses, warm, well-perfused, no edema. LUE: +erythema, tenderness, swelling on the antecubital area NEUROLOGICAL: Cranial nerves II through XII grossly intact. Normal speech PSYCH: Normal mood, normal affect. SKIN: Warm, dry, normal turgor Laboratory Results - last 24 hr 09/06/19 09/08/19 09/09/19 14:32 13:28 05:50 WBC 5.9 RBC 3.92 Hgb 11.8 Hct 34.5 MCV 88.1 MCH 30.1 MCHC 34.1 RDW 13.4 Plt Count 281 MPV 8.1 Absolute Neuts (auto) 2.6 Neutrophils % 44.2 Lymphocytes % 38.8 D Monocytes % 8.8 Eosinophils % 7.4 H Basophils % 0.8 Nucleated RBC % 0 Sodium Potassium Chloride Carbon Dioxide Anion Gap BUN Creatinine Est GFR (CKD-EPI)AfAm Est GFR (CKD-EPI)NonAf Random Glucose Calcium Phosphorus Magnesium Total Bilirubin AST ALT Alkaline Phosphatase Total Protein Albumin Vancomycin Pre-Dose 14.2 H COVID-19 ([facility]) Not detected 09/09/19 05:50 WBC RBC Hgb Hct MCV MCH MCHC RDW Plt Count MPV Absolute Neuts (auto) Neutrophils % Lymphocytes % Monocytes % Eosinophils % Basophils % Nucleated RBC % Sodium 141 Potassium 3.7 Chloride 108 H Carbon Dioxide 26 Anion Gap 8 BUN 9.6 Creatinine 0.8 Est GFR (CKD-EPI)AfAm 108.39 Est GFR (CKD-EPI)NonAf 93.52 Random Glucose 113 H Calcium 8.3 L Phosphorus 4.0 Magnesium 2.1 Total Bilirubin 0.3 AST 16 ALT 18 Alkaline Phosphatase 74 Total Protein 6.4 Albumin 2.9 L Vancomycin Pre-Dose COVID-19 ([facility]) Active Medications Generic Name Dose Route Start Last Admin Trade Name Freq PRN Reason Stop Dose Admin Acetaminophen 650 mg 09/09/19 11:22 Tylenol - PO Q4H PRN PAIN 1-3 Albuterol Sulfate 2 puff 09/09/19 11:22 Ventolin Hfa Inhaler - IH Q4H PRN ASTHMA Amitriptyline HCl 50 mg 09/09/19 22:00 Elavil - PO BID [facility] Clonazepam 2 mg 09/09/19 11:22 Klonopin - PO BID PRN ANXIETY Enoxaparin Sodium 40 mg 09/10/19 10:00 Lovenox - SQ DAILY [facility] Famotidine 20 mg 09/10/19 10:00 Pepcid - PO DAILY [facility] Gabapentin 1,200 mg 09/09/19 22:00 Neurontin - PO HS [facility] Vancomycin HCl 1,500 mg/ 500 mls @ 250 mls/hr 09/09/19 14:00 Dextrose IVPB Q12H [facility] Protocol Ketorolac Tromethamine 15 mg 09/09/19 10:47 Toradol Injection - IVPUSH 09/14/19 10:46 Q6H PRN PAIN LEVEL 6-10 Levothyroxine Sodium 100 mcg 09/10/19 07:00 Synthroid - PO DAILY@0700 [facility] Morphine Sulfate 4 mg 09/09/19 11:22 Morphine Sulfate IVPUSH Q4H PRN PAIN LEVEL 6-10 Ondansetron HCl 4 mg 09/09/19 10:48 Zofran Injection IVPUSH 09/10/19 10:47 Q6H PRN NAUSEA AND/OR VOMITING Oxycodone HCl 10 mg 09/09/19 10:48 Roxicodone - PO Q4H PRN PAIN 7-10; IF MORPHINE NOT WRK Oxycodone HCl 5 mg 09/09/19 10:48 Roxicodone - PO Q4H PRN PAIN LEVEL 4-6 Promethazine HCl 12.5 mg 09/09/19 10:48 Phenergan Injection - IVPB 09/10/19 10:47 Q6H PRN NAUSEA-FOR RESCUE AFTER 15 MIN ASSESSMENT/PLAN: Patient is a 39 year old female with past medical history of IVDU (reports last use in June), hypothyroidism, anxiety, presented to the ED for left forearm wound, admitted for left antecubital abscess with surrounding cellulitis. I&D done at the ER. #Left arm cellulitis -CT scan of LUE - mild complex deep subcutaneous fluid collection within left antecubital fossa. There is a small amount air/gas within collection ventrally. Concentric subcutaneous edema is seen at the level of the distal aspect of the left upper arm, elbow and partially imaged proximal forearm. -Wound cultures - MRSA -Continue Vancomycin 1500mg q12h -Blood cultures no growth to date -ID (Dr. Woodall) consulted. REcommendations appreciated. -SUrgery (Dr. Mendez) consulted. Recommendations appreciated. -POD 0: Incision & drainage of L antecubital fossa abscess -Findings: purulent drainage and marked induration and fibrosis #Hypothyroidism -Synthroid 100mcg daily #Anxiety -Continue Amitriptylline 50mg bid -Klonopin prn #FEN -Not on any standing fluids -Electrolytes wnl, routine bmp monitoring -Regular diet #Prophylaxis -Lovenox 40mg sq daily #Disposition -full code -continue to monitor on med surg Visit type - Emergency Visit Emergency Visit: Yes ED Registration Date: 09/06/19 Care time: The patient presented to the Emergency Department on the above date and was hospitalized for further evaluation of their emergent condition. - New Patient This patient is new to me today: No - Critical Care Critical Care patient: No ATTENDING PHYSICIAN STATEMENT I saw and evaluated the patient. I reviewed the resident's note and discussed the case with the resident. I agree with the resident's findings and plan as documented. SUBJECTIVE: OBJECTIVE: ASSESSMENT AND PLAN:
[2019-09-09] MEDS ORDERED: BACITRACIN 15 GM TUBE TOPICAL OINTMENT ONE (13:29)
[2019-09-09] MEDS: oxyCODONE HCL 5 MG TABLET PO PRN ×2 (15:50→21:00)
[2019-09-09] MEDS: GABAPENTIN 400 MG CAPSULE PO SCH (21:01)
[2019-09-10] MEDS ORDERED: PT OWN MED DRAWER 7, Y5N ONE ×3 (01:16→13:57)
[2019-09-10] MEDS: morphine SULFATE 4 MG/ML VIAL IVPUSH PRN ×5 (01:18→20:02)
[2019-09-10] MEDS: VANCOMYCIN HCL 1,500 MG in DEXTROSE 5%-WATER - 500 ML IVPB SCH ×2 (01:20→14:32)
[2019-09-10] MEDS: oxyCODONE HCL 5 MG TABLET PO PRN ×5 (03:07→23:09)
[2019-09-10] MEDS: LEVOTHYROXINE NA 100 MCG TABLET (FP) PO SCH (06:24)
[2019-09-10 07:05] LABS: BASO % 0.5 % (0-2.0); EOS % 0.2 % (0-4.5); HEMATOCRIT 34.4 % (32.4-45.2); HEMOGLOBIN 11.8 GM/dL (10.7-15.3); LYMPH % 21.4 % (8-40); MCH 29.6 pg (25.7-33.7); MCHC 34.2 g/dl (32.0-36.0); MEAN CELL VOLUME 86.5 fl (80-96); MEAN PLT VOLUME 7.8 fl (7.5-11.1); MONO % 7.6 % (3.8-10.2); NEUT % 70.3 % (42.8-82.8); PLATELET COUNT 300 K/MM3 (134-434); RBC 3.98 M/mm3 (3.60-5.2); WHITE BLOOD COUNT 10.7 K/mm3 (4.0-10.0)
[2019-09-10 07:35] LABS: ALBUMIN 2.9 g/dl (3.4-5.0); BILIRUBIN,TOTAL 0.3 mg/dL (0.2-1); CALCIUM 8.7 mg/dL (8.5-10.1); CREATININE 0.7 mg/dL (0.55-1.3); MAGNESIUM 2.1 mg/dL (1.8-2.4); POTASSIUM 3.9 mmol/L (3.5-5.1); TOT PROT 6.3 g/dl (6.4-8.2)
--- NOTE | 2019-09-10 08:22 | PN ---
Physical Exam: SUBJECTIVE: Patient seen and examined at bedside this morning. OBJECTIVE: Vital Signs Temperature 97.5 F L 09/10/19 05:56 Pulse Rate 51 L 09/10/19 05:56 Respiratory Rate 18 09/10/19 05:56 Blood Pressure 132/74 09/10/19 05:56 O2 Sat by Pulse Oximetry (%) 96 09/09/19 21:00 GENERAL: The patient is awake, alert, and fully oriented, in no acute distress. NECK: supple. LUNGS: Breath sounds equal, clear to auscultation bilaterally HEART: Regular rate and rhythm, S1, S2 ABDOMEN: Soft, nontender, nondistended, normoactive bowel sounds EXTREMITIES: 2+ pulses, warm, well-perfused, no edema. LUE: bandage in place, C/D/I NEUROLOGICAL: Cranial nerves II through XII grossly intact. Normal speech PSYCH: Normal mood, normal affect. SKIN: Warm, dry, normal turgor Laboratory Results - last 24 hr 09/10/19 09/10/19 06:38 06:38 WBC 10.7 H RBC 3.98 Hgb 11.8 Hct 34.4 MCV 86.5 MCH 29.6 MCHC 34.2 RDW 13.0 Plt Count 300 MPV 7.8 Absolute Neuts (auto) 7.5 Neutrophils % 70.3 D Lymphocytes % 21.4 D Monocytes % 7.6 Eosinophils % 0.2 D Basophils % 0.5 Nucleated RBC % 0 Sodium 141 Potassium 3.9 Chloride 107 Carbon Dioxide 27 Anion Gap 7 L BUN 13.0 Creatinine 0.7 Est GFR (CKD-EPI)AfAm 127.39 Est GFR (CKD-EPI)NonAf 109.91 Random Glucose 133 H Calcium 8.7 Magnesium 2.1 Total Bilirubin 0.3 AST 30 ALT 32 Alkaline Phosphatase 73 Total Protein 6.3 L Albumin 2.9 L Active Medications Generic Name Dose Route Start Last Admin Trade Name Freq PRN Reason Stop Dose Admin Acetaminophen 650 mg 09/09/19 11:22 Tylenol - PO Q4H PRN PAIN 1-3 Albuterol Sulfate 2 puff 09/09/19 11:22 Ventolin Hfa Inhaler - IH Q4H PRN ASTHMA Amitriptyline HCl 50 mg 09/09/19 22:00 09/09/19 21:01 Elavil - PO Not Given BID CHARLIE Clonazepam 2 mg 09/09/19 11:22 Klonopin - PO BID PRN ANXIETY Enoxaparin Sodium 40 mg 09/10/19 10:00 Lovenox - SQ DAILY [facility] Famotidine 20 mg 09/10/19 10:00 Pepcid - PO DAILY [facility] Gabapentin 1,200 mg 09/09/19 22:00 09/09/19 21:01 Neurontin - PO Not Given HS CHARLIE Vancomycin HCl 1,500 mg/ 500 mls @ 250 mls/hr 09/09/19 14:00 09/10/19 01:20 Dextrose IVPB 250 mls/hr Q12H CHARLIE Administration Protocol Ketorolac Tromethamine 15 mg 09/09/19 10:47 Toradol Injection - IVPUSH 09/14/19 10:46 Q6H PRN PAIN LEVEL 6-10 Levothyroxine Sodium 100 mcg 09/10/19 07:00 09/10/19 06:24 Synthroid - PO 100 mcg DAILY@0700 [facility] Administration Morphine Sulfate 4 mg 09/09/19 11:22 09/10/19 05:34 Morphine Sulfate IVPUSH 4 mg Q4H PRN Administration PAIN LEVEL 6-10 Ondansetron HCl 4 mg 09/09/19 10:48 Zofran Injection IVPUSH 09/10/19 10:47 Q6H PRN NAUSEA AND/OR VOMITING Oxycodone HCl 10 mg 09/09/19 10:48 09/10/19 07:10 Roxicodone - PO 10 mg Q4H PRN Administration PAIN 7-10; IF MORPHINE NOT WRK Oxycodone HCl 5 mg 09/09/19 10:48 Roxicodone - PO Q4H PRN PAIN LEVEL 4-6 Promethazine HCl 12.5 mg 09/09/19 10:48 Phenergan Injection - IVPB 09/10/19 10:47 Q6H PRN NAUSEA-FOR RESCUE AFTER 15 MIN ASSESSMENT/PLAN: Patient is a 39 year old female with past medical history of IVDU (reports last use in June), hypothyroidism, anxiety, presented to the ED for left forearm wound, admitted for left antecubital abscess with surrounding cellulitis. I&D done at the ER. #Left arm cellulitis -CT scan of LUE - mild complex deep subcutaneous fluid collection within left antecubital fossa. There is a small amount air/gas within collection ventrally. Concentric subcutaneous edema is seen at the level of the distal aspect of the left upper arm, elbow and partially imaged proximal forearm. -Wound cultures - MRSA -Continue Vancomycin 1500mg q12h day 2 -Blood cultures no growth to date -ID (Dr. Woodall) consulted. REcommendations appreciated. -SUrgery (Dr. Mendez) consulted. Recommendations appreciated. -POD 1: Incision & drainage of L antecubital fossa abscess -Findings: purulent drainage and marked induration and fibrosis -Wound culture no growth to date #Hypothyroidism -Synthroid 100mcg daily #Anxiety -Continue Amitriptylline 50mg bid -Klonopin prn #FEN -Not on any standing fluids -Electrolytes wnl, routine bmp monitoring -Regular diet #Prophylaxis -Lovenox 40mg sq daily #Disposition -full code -continue to monitor on med surg Visit type - Emergency Visit Emergency Visit: Yes ED Registration Date: 09/06/19 Care time: The patient presented to the Emergency Department on the above date and was hospitalized for further evaluation of their emergent condition. - New Patient This patient is new to me today: No - Critical Care Critical Care patient: No ATTENDING PHYSICIAN STATEMENT I saw and evaluated the patient. I reviewed the resident's note and discussed the case with the resident. I agree with the resident's findings and plan as documented. SUBJECTIVE: OBJECTIVE: ASSESSMENT AND PLAN:
[2019-09-10] MEDS: FAMOTIDINE 20 MG TABLET PO SCH (09:45)
[2019-09-10] MEDS: AMITRIPTYLINE HCL 25 MG TABLET PO SCH ×2 (09:46→21:54)
[2019-09-10] MEDS ORDERED: ENOXAPARIN NA (PORCINE) 40 MG/0.4 ML DISP.SYRIN SQ SCH (10:00)
--- NOTE | 2019-09-10 10:04 | PN ---
Progress Note (short form) - Note Progress Note: GENERAL SURGERY POD #1 Alert. C/o mild incisional tenderness. Pain controlled well with medications ordered. Denies n/v/f/c, hand numbness/tingling AVSS. Afebrile Gen: alert. nad LUE: (surgical packing removed). Wound bed clean/pink. A/P: 39 yo female POD #1 s/p Incision & drainage of L antecubital fossa abscess - wound re-packed while on rounds - VNS ordered - ID f/u - no further surgical input needed - patient to f/u with Dr. Mendez for out-patient f/u as outlined in discharge plan Above plan discussed with Dr. Mendez and agrees. Problem List - Problems (1) Abscess of left upper extremity Code(s): L02.414 - CUTANEOUS ABSCESS OF LEFT UPPER LIMB (2) Heroin abuse Code(s): F11.10 - OPIOID ABUSE, UNCOMPLICATED (3) Hypothyroid Code(s): E03.9 - HYPOTHYROIDISM, UNSPECIFIED Qualifiers: Hypothyroidism type: unspecified Qualified Code(s): E03.9 - Hypothyroidism, unspecified (4) Obesity Code(s): E66.9 - OBESITY, UNSPECIFIED
[2019-09-10] MEDS: clonazePAM 2 MG TABLET PO PRN ×2 (10:40→21:52)
--- NOTE | 2019-09-10 16:44 | PN ---
Progress Note, Physician History of Present Illness: Pt seen and examined. Still has some pain in LUE, controlled with meds. Able to bend elbow. s/p drainage POD#1. - Current Medication List Current Medications: Active Medications Acetaminophen (Tylenol -) 650 mg PO Q4H PRN PRN Reason: PAIN 1-3 Albuterol Sulfate (Ventolin Hfa Inhaler -) 2 puff IH Q4H PRN PRN Reason: ASTHMA Amitriptyline HCl (Elavil -) 50 mg PO BID [facility] Last Admin: 09/10/19 09:46 Dose: 50 mg Documented by: Clonazepam (Klonopin -) 2 mg PO BID PRN PRN Reason: ANXIETY Last Admin: 09/10/19 10:40 Dose: 2 mg Documented by: Enoxaparin Sodium (Lovenox -) 40 mg SQ DAILY [facility] Famotidine (Pepcid -) 20 mg PO DAILY [facility] Last Admin: 09/10/19 09:45 Dose: 20 mg Documented by: Gabapentin (Neurontin -) 1,200 mg PO HS [facility] Last Admin: 09/09/19 21:01 Dose: Not Given Documented by: Vancomycin HCl 1,500 mg/ (Dextrose) 500 mls @ 250 mls/hr IVPB Q12H [facility]; Protocol Last Admin: 09/10/19 14:32 Dose: 250 mls/hr Documented by: Ketorolac Tromethamine (Toradol Injection -) 15 mg IVPUSH Q6H PRN PRN Reason: PAIN LEVEL 6-10 Stop: 09/14/19 10:46 Levothyroxine Sodium (Synthroid -) 100 mcg PO DAILY@0700 [facility] Last Admin: 09/10/19 06:24 Dose: 100 mcg Documented by: Morphine Sulfate (Morphine Sulfate) 4 mg IVPUSH Q4H PRN PRN Reason: PAIN LEVEL 6-10 Last Admin: 09/10/19 15:38 Dose: 4 mg Documented by: Oxycodone HCl (Roxicodone -) 10 mg PO Q4H PRN PRN Reason: PAIN 7-10; IF MORPHINE NOT WRK Last Admin: 09/10/19 11:50 Dose: 10 mg Documented by: Oxycodone HCl (Roxicodone -) 5 mg PO Q4H PRN PRN Reason: PAIN LEVEL 4-6 - Objective Vital Signs: Vital Signs Temperature 98.0 F 07/15/20 13:00 Pulse Rate 74 09/10/19 13:00 Respiratory Rate 20 09/10/19 13:00 Blood Pressure 115/59 L 09/10/19 13:00 O2 Sat by Pulse Oximetry (%) 100 09/10/19 13:00 Constitutional: Yes: No Distress, Calm Eyes: Yes: Conjunctiva Clear HENT: Yes: Atraumatic Cardiovascular: Yes: Regular Rate and Rhythm Respiratory: Yes: CTA Bilaterally Gastrointestinal: Yes: Normal Bowel Sounds, Soft, Abdomen, Obese Genitourinary: Yes: WNL Wound/Incision: Yes: Dressing Dry and Intact, Other (LUE packing, minimal LUE edema, +tenderness) 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: Alert, Oriented Labs: CBC, BMP 09/10/19 06:38 09/10/19 06:38 Microbiology 09/09/19 10:21 Wound Gram Stain - Final 09/09/19 10:21 Wound Wound Culture - Preliminary NO GROWTH OBTAINED AFTER 24 HOURS INCUBATION, REINCUBATED. 09/06/19 14:22 Blood - Peripheral Venous Blood Culture - Preliminary NO GROWTH OBTAINED AFTER 96 HOURS, INCUBATION TO CONTINUE FOR 1 DAYS. 09/06/19 14:22 Blood - Peripheral Venous Blood Culture - Preliminary NO GROWTH OBTAINED AFTER 96 HOURS, INCUBATION TO CONTINUE FOR 1 DAYS. 09/06/19 14:22 Arm - Right Upper Gram Stain - Final 09/06/19 14:22 Arm - Right Upper Wound Culture - Final S Aureus - ....Imaging Cat Scan: Report Reviewed Problem List - Problems (1) Abscess of left upper extremity Code(s): L02.414 - CUTANEOUS ABSCESS OF LEFT UPPER LIMB (2) Cellulitis Code(s): L03.90 - CELLULITIS, UNSPECIFIED Qualifiers: Site of cellulitis: extremity Site of cellulitis of extremity: upper extremity Laterality: left Qualified Code(s): L03.114 - Cellulitis of left upper limb (3) Depressive disorder Code(s): F32.9 - MAJOR DEPRESSIVE DISORDER, SINGLE EPISODE, UNSPECIFIED (4) Hypothyroid Code(s): E03.9 - HYPOTHYROIDISM, UNSPECIFIED Qualifiers: Hypothyroidism type: unspecified Qualified Code(s): E03.9 - Hypothyroidism, unspecified (5) Obesity Code(s): E66.9 - OBESITY, UNSPECIFIED Assessment/Plan LUE MRSA abscess/cellulitis s/p drainage POD#1 Hx of IVDU -- wbc slightly elevated, likely due to post-op inflammation -- suggest continue Vancomycin IV today. If wbc normal in a.m. suggest switch to Doxycycline 100 mg PO BID x 12 days -- outpt followup with Surgery, ID -- VNS
[2019-09-10 19:10] LABS: CALCIUM 8.4 mg/dL (8.5-10.1); CREATININE 0.9 mg/dL (0.55-1.3); POTASSIUM 3.3 mmol/L (3.5-5.1)
--- NOTE | 2019-09-10 21:49 | PN ---
Teaching Attending Note Name of Resident: Luann Jackson ATTENDING PHYSICIAN STATEMENT I saw and evaluated the patient. I reviewed the resident's note and discussed the case with the resident. I agree with the resident's findings and plan as documented. SUBJECTIVE: Patient seen and examined at bedside, admitted for L forearm abscess d/t IVDU, VSS. OBJECTIVE: GENERAL: The patient is awake, alert, and fully oriented, in no acute distress. NECK: supple. LUNGS: Breath sounds equal, clear to auscultation bilaterally HEART: Regular rate and rhythm, S1, S2 ABDOMEN: Soft, nontender, nondistended, normoactive bowel sounds EXTREMITIES: 2+ pulses, warm, well-perfused, no edema. LUE: +erythema, tenderness, swelling on the antecubital area NEUROLOGICAL: Cranial nerves II through XII grossly intact. Normal speech PSYCH: Normal mood, normal affect. SKIN: Warm, dry, normal turgor Vital Signs - 24 hr 09/10/19 09/10/19 09/10/19 05:56 09:00 13:00 Temperature 97.5 F L 98 F 98.0 F Pulse Rate 51 L 64 74 Respiratory 18 19 20 Rate Blood Pressure 132/74 149/80 115/59 L O2 Sat by Pulse 99 100 Oximetry (%) 09/10/19 17:00 Temperature 98.1 F Pulse Rate 74 Respiratory 20 Rate Blood Pressure 131/65 O2 Sat by Pulse 99 Oximetry (%) Microbiology 09/09/19 10:21 Wound Gram Stain - Final 09/09/19 10:21 Wound Wound Culture - Preliminary NO GROWTH OBTAINED AFTER 24 HOURS INCUBATION, REINCUBATED. 09/06/19 14:22 Blood - Peripheral Venous Blood Culture - Preliminary NO GROWTH OBTAINED AFTER 96 HOURS, INCUBATION TO CONTINUE FOR 1 DAYS. 09/06/19 14:22 Blood - Peripheral Venous Blood Culture - Preliminary NO GROWTH OBTAINED AFTER 96 HOURS, INCUBATION TO CONTINUE FOR 1 DAYS. 09/06/19 14:22 Arm - Right Upper Gram Stain - Final 09/06/19 14:22 Arm - Right Upper Wound Culture - Final Mr S Aureus Laboratory Results - last 24 hr 09/10/19 09/10/19 09/10/19 06:38 06:38 17:53 WBC 10.7 H RBC 3.98 Hgb 11.8 Hct 34.4 MCV 86.5 MCH 29.6 MCHC 34.2 RDW 13.0 Plt Count 300 MPV 7.8 Absolute Neuts (auto) 7.5 Neutrophils % 70.3 D Lymphocytes % 21.4 D Monocytes % 7.6 Eosinophils % 0.2 D Basophils % 0.5 Nucleated RBC % 0 Sodium 141 142 Potassium 3.9 3.3 L Chloride 107 108 H Carbon Dioxide 27 26 Anion Gap 7 L 8 BUN 13.0 12.0 Creatinine 0.7 0.9 Est GFR (CKD-EPI)AfAm 127.39 94.01 Est GFR (CKD-EPI)NonAf 109.91 81.11 Random Glucose 133 H 117 H Calcium 8.7 8.4 L Magnesium 2.1 Total Bilirubin 0.3 AST 30 ALT 32 Alkaline Phosphatase 73 Total Protein 6.3 L Albumin 2.9 L Home Medications Medication Instructions Recorded Amitriptyline HCl [Elavil -] 50 mg PO BID 05/25/16 Gabapentin 1,200 mg PO HS 05/25/16 Famotidine [Pepcid -] 20 mg PO DAILY 07/19/16 Albuterol Sulfate Inhaler - 2 inh PO Q4H PRN #1 inhaler 07/24/16 [Ventolin HFA Inhaler -] Levothyroxine [Synthroid -] 25 mcg PO DAILY #30 mcg 07/24/16 oxyCODONE HCL [Roxicodone -] 5 mg PO Q4H PRN #20 tablet MDD 6 09/10/19 Current Medications Generic Name Dose Route Start Last Admin Trade Name Freq PRN Reason Stop Dose Admin Acetaminophen 650 mg 09/09/19 11:22 Tylenol - PO Q4H PRN PAIN 1-3 Albuterol Sulfate 2 puff 09/09/19 11:22 Ventolin Hfa Inhaler - IH Q4H PRN ASTHMA Amitriptyline HCl 50 mg 09/09/19 22:00 09/10/19 09:46 Elavil - PO 50 mg BID CHARLIE Administration Clonazepam 2 mg 09/09/19 11:22 09/10/19 10:40 Klonopin - PO 2 mg BID PRN Administration ANXIETY Enoxaparin Sodium 40 mg 09/10/19 10:00 Lovenox - SQ DAILY CHARLIE Famotidine 20 mg 09/10/19 10:00 09/10/19 09:45 Pepcid - PO 20 mg DAILY CHARLIE Administration Gabapentin 1,200 mg 09/09/19 22:00 09/09/19 21:01 Neurontin - PO Not Given HS CHARLIE Vancomycin HCl 1,500 mg/ 500 mls @ 250 mls/hr 09/09/19 14:00 09/10/19 14:32 Dextrose IVPB 250 mls/hr Q12H CHARLIE Administration Protocol Ketorolac Tromethamine 15 mg 09/09/19 10:47 Toradol Injection - IVPUSH 09/14/19 10:46 Q6H PRN PAIN LEVEL 6-10 Levothyroxine Sodium 100 mcg 09/10/19 07:00 09/10/19 06:24 Synthroid - PO 100 mcg DAILY@0700 CHARLIE Administration Morphine Sulfate 4 mg 09/09/19 11:22 09/10/19 20:02 Morphine Sulfate IVPUSH 4 mg Q4H PRN Administration PAIN LEVEL 6-10 Oxycodone HCl 10 mg 09/09/19 10:48 09/10/19 19:01 Roxicodone - PO 10 mg Q4H PRN Administration PAIN 7-10; IF MORPHINE NOT WRK Oxycodone HCl 5 mg 09/09/19 10:48 Roxicodone - PO Q4H PRN PAIN LEVEL 4-6 ASSESSMENT: 39 F IV drug abuse (heroin) HTN Obesity Chronic pain Hypothyroidism Neuropathy Anxiety Plan: Cont. Vancomycin w/ adjustment of dose via troughs Cont. Synthroid Counseled on IVDA Dr. Slade consult for enrollment to Methadone program DVT ppx: Lovenox
--- NOTE | 2019-09-10 21:51 | PN ---
Teaching Attending Note Name of Resident: Luann Jackson ATTENDING PHYSICIAN STATEMENT I saw and evaluated the patient. I reviewed the resident's note and discussed the case with the resident. I agree with the resident's findings and plan as documented. ATTENDING PHYSICIAN STATEMENT I saw and evaluated the patient. I reviewed the resident's note and discussed the case with the resident. I agree with the resident's findings and plan as documented. SUBJECTIVE: Patient seen and examined at bedside, Awaiting ID recs for abx may DC after. VSS. OBJECTIVE: GENERAL: The patient is awake, alert, and fully oriented, in no acute distress. NECK: supple. LUNGS: Breath sounds equal, clear to auscultation bilaterally HEART: Regular rate and rhythm, S1, S2 ABDOMEN: Soft, nontender, nondistended, normoactive bowel sounds EXTREMITIES: 2+ pulses, warm, well-perfused, no edema. LUE: +erythema, tenderness, swelling on the antecubital area with wound dressing NEUROLOGICAL: Cranial nerves II through XII grossly intact. Normal speech PSYCH: Normal mood, normal affect. SKIN: Warm, dry, normal turgor Vital Signs - 24 hr 09/10/19 09/10/19 09/10/19 05:56 09:00 13:00 Temperature 97.5 F L 98 F 98.0 F Pulse Rate 51 L 64 74 Respiratory 18 19 20 Rate Blood Pressure 132/74 149/80 115/59 L O2 Sat by Pulse 99 100 Oximetry (%) 09/10/19 17:00 Temperature 98.1 F Pulse Rate 74 Respiratory 20 Rate Blood Pressure 131/65 O2 Sat by Pulse 99 Oximetry (%) Microbiology 09/09/19 10:21 Wound Gram Stain - Final 09/09/19 10:21 Wound Wound Culture - Preliminary NO GROWTH OBTAINED AFTER 24 HOURS INCUBATION, ALEXIS NCUBATED. 09/06/19 14:22 Blood - Peripheral Venous Blood Culture - Preliminary NO GROWTH OBTAINED AFTER 96 HOURS, INCUBATION TO CONTINUE FOR 1 DAYS. 09/06/19 14:22 Blood - Peripheral Venous Blood Culture - Preliminary NO GROWTH OBTAINED AFTER 96 HOURS, INCUBATION TO CONTINUE FOR 1 DAYS. 09/06/19 14:22 Arm - Right Upper Gram Stain - Final 09/06/19 14:22 Arm - Right Upper Wound Culture - Final Mr S Aureus Laboratory Results - last 24 hr 09/10/19 09/10/19 09/10/19 06:38 06:38 17:53 WBC 10.7 H RBC 3.98 Hgb 11.8 Hct 34.4 MCV 86.5 MCH 29.6 MCHC 34.2 RDW 13.0 Plt Count 300 MPV 7.8 Absolute Neuts (auto) 7.5 Neutrophils % 70.3 D Lymphocytes % 21.4 D Monocytes % 7.6 Eosinophils % 0.2 D Basophils % 0.5 Nucleated RBC % 0 Sodium 141 142 Potassium 3.9 3.3 L Chloride 107 108 H Carbon Dioxide 27 26 Anion Gap 7 L 8 BUN 13.0 12.0 Creatinine 0.7 0.9 Est GFR (CKD-EPI)AfAm 127.39 94.01 Est GFR (CKD-EPI)NonAf 109.91 81.11 Random Glucose 133 H 117 H Calcium 8.7 8.4 L Magnesium 2.1 Total Bilirubin 0.3 AST 30 ALT 32 Alkaline Phosphatase 73 Total Protein 6.3 L Albumin 2.9 L Home Medications Medication Instructions Recorded Amitriptyline HCl [Elavil -] 50 mg PO BID 05/25/16 Gabapentin 1,200 mg PO HS 05/25/16 Famotidine [Pepcid -] 20 mg PO DAILY 07/19/16 Albuterol Sulfate Inhaler - 2 inh PO Q4H PRN #1 inhaler 07/24/16 [Ventolin HFA Inhaler -] Levothyroxine [Synthroid -] 25 mcg PO DAILY #30 mcg 07/24/16 oxyCODONE HCL [Roxicodone -] 5 mg PO Q4H PRN #20 tablet MDD 6 09/10/19 Current Medications Generic Name Dose Route Start Last Admin Trade Name Dionte PRN Reason Stop Dose Admin Acetaminophen 650 mg 09/09/19 11:22 Tylenol - PO Q4H PRN PAIN 1-3 Albuterol Sulfate 2 puff 09/09/19 11:22 Ventolin Hfa Inhaler - IH Q4H PRN ASTHMA Amitriptyline HCl 50 mg 09/09/19 22:00 09/10/19 09:46 Elavil - PO 50 mg BID CHARLIE Administration Clonazepam 2 mg 09/09/19 11:22 09/10/19 10:40 Klonopin - PO 2 mg BID PRN Administration ANXIETY Enoxaparin Sodium 40 mg 09/10/19 10:00 Lovenox - SQ DAILY CHARLIE Famotidine 20 mg 09/10/19 10:00 09/10/19 09:45 Pepcid - PO 20 mg DAILY CHARLIE Administration Gabapentin 1,200 mg 09/09/19 22:00 09/09/19 21:01 Neurontin - PO Not Given HS CHARLIE Vancomycin HCl 1,500 mg/ 500 mls @ 250 mls/hr 09/09/19 14:00 09/10/19 14:32 Dextrose IVPB 250 mls/hr Q12H CHARLIE Administration Protocol Ketorolac Tromethamine 15 mg 09/09/19 10:47 Toradol Injection - IVPUSH 09/14/19 10:46 Q6H PRN PAIN LEVEL 6-10 Levothyroxine Sodium 100 mcg 09/10/19 07:00 09/10/19 06:24 Synthroid - PO 100 mcg DAILY@0700 CHARLIE Administration Morphine Sulfate 4 mg 09/09/19 11:22 09/10/19 20:02 Morphine Sulfate IVPUSH 4 mg Q4H PRN Administration PAIN LEVEL 6-10 Oxycodone HCl 10 mg 09/09/19 10:48 09/10/19 19:01 Roxicodone - PO 10 mg Q4H PRN Administration PAIN 7-10; IF MORPHINE NOT WRK Oxycodone HCl 5 mg 09/09/19 10:48 Roxicodone - PO Q4H PRN PAIN LEVEL 4-6 ASSESSMENT: 39 F IV drug abuse (heroin) HTN Obesity Chronic pain Hypothyroidism Neuropathy Anxiety Plan: Cont. Vancomycin obtain AM troughs, transition to PO meds per ID recs Cont. Synthroid Counseled on IVDA Dr. Slade consult for enrollment to Methadone program DVT ppx: Lovenox
[2019-09-10] MEDS: GABAPENTIN 400 MG CAPSULE PO SCH (21:54)
[2019-09-11] MEDS ORDERED: PT OWN MED DRAWER 7, Y5N ONE (01:19)
[2019-09-11] MEDS: VANCOMYCIN HCL 1,500 MG in DEXTROSE 5%-WATER - 500 ML IVPB SCH ×2 (01:24→13:14)
[2019-09-11] MEDS: morphine SULFATE 4 MG/ML VIAL IVPUSH PRN ×4 (01:27→14:09)
[2019-09-11] MEDS: oxyCODONE HCL 5 MG TABLET PO PRN ×4 (04:25→16:15)
[2019-09-11] MEDS: LEVOTHYROXINE NA 100 MCG TABLET (FP) PO SCH (06:31)
[2019-09-11 06:57] LABS: BASO % 1.3 % (0-2.0); HEMATOCRIT 34.2 % (32.4-45.2); HEMOGLOBIN 11.5 GM/dL (10.7-15.3); LYMPH % 45.1 % (8-40); MCH 29.4 pg (25.7-33.7); MCHC 33.6 g/dl (32.0-36.0); MEAN CELL VOLUME 87.4 fl (80-96); MEAN PLT VOLUME 7.8 fl (7.5-11.1); MONO % 7.5 % (3.8-10.2); NEUT % 41.1 % (42.8-82.8); PLATELET COUNT 271 K/MM3 (134-434); RBC 3.91 M/mm3 (3.60-5.2); RDW 13.2 % (11.6-15.6); WHITE BLOOD COUNT 7.2 K/mm3 (4.0-10.0)
[2019-09-11] MEDS ORDERED: POTASSIUM CHLORIDE TABS 20 MEQ TABLET.ER (FP) PO ONE (07:12)
[2019-09-11] MEDS: AMITRIPTYLINE HCL 25 MG TABLET PO SCH (09:06)
[2019-09-11] MEDS: FAMOTIDINE 20 MG TABLET PO SCH (09:06)
[2019-09-11] MEDS: clonazePAM 2 MG TABLET PO PRN (11:27)
[2019-09-11 13:12] VITALS: BP 117/54; PULSE 71; TEMP 98
[2019-09-11 13:32] LABS: BLOOD UREA NITROGEN 16.2 mg/dL (7-18); CALCIUM 8.2 mg/dL (8.5-10.1); CREATININE 0.9 mg/dL (0.55-1.3); POTASSIUM 3.6 mmol/L (3.5-5.1)
--- NOTE | 2019-09-11 14:27 | DS ---
Physical Exam: SUBJECTIVE: Patient seen and examined OBJECTIVE: Vital Signs Period Temp Pulse Resp BP Sys/Alex Pulse Ox Last 24 Hr 97.4 F-98.3 F 54-74 18-20 107-138/54-74 99-100 PHYSICAL EXAM GENERAL: The patient is awake, alert, and fully oriented, in no acute distress. NECK: supple. LUNGS: Breath sounds equal, clear to auscultation bilaterally HEART: Regular rate and rhythm, S1, S2 ABDOMEN: Soft, nontender, nondistended, normoactive bowel sounds EXTREMITIES: 2+ pulses, warm, well-perfused, no edema. LUE: bandage in place, C/D/I NEUROLOGICAL: Cranial nerves II through XII grossly intact. Normal speech PSYCH: Normal mood, normal affect. SKIN: Warm, dry, normal turgor LABS Laboratory Results - last 24 hr 09/10/19 09/11/19 09/11/19 17:53 06:30 06:30 WBC 7.2 RBC 3.91 Hgb 11.5 Hct 34.2 MCV 87.4 MCH 29.4 MCHC 33.6 RDW 13.2 Plt Count 271 MPV 7.8 Absolute Neuts (auto) 2.9 Neutrophils % 41.1 L D Lymphocytes % 45.1 H D Monocytes % 7.5 Eosinophils % 5.0 H D Basophils % 1.3 Nucleated RBC % 0 Sodium 142 143 Potassium 3.3 L 3.6 Chloride 108 H 109 H Carbon Dioxide 26 25 Anion Gap 8 9 BUN 12.0 16.2 Creatinine 0.9 0.9 Est GFR (CKD-EPI)AfAm 94.01 94.01 Est GFR (CKD-EPI)NonAf 81.11 81.11 Random Glucose 117 H 85 Calcium 8.4 L 8.2 L Magnesium 2.0 HOSPITAL COURSE: Date of Admission:09/06/19 Date of Discharge: 09/11/19 ASSESSMENT/PLAN: Patient is a 39 year old female with past medical history of IVDU (reports last use in June), hypothyroidism, anxiety, presented to the ED for left forearm wound, admitted for left antecubital abscess with surrounding cellulitis. I&D done at the ER. #Left arm cellulitis -CT scan of LUE - mild complex deep subcutaneous fluid collection within left antecubital fossa. There is a small amount air/gas within collection ventrally. Concentric subcutaneous edema is seen at the level of the distal aspect of the left upper arm, elbow and partially imaged proximal forearm. -s/p Incision & drainage of L antecubital fossa abscess -Wound cultures - MRSA -IV Vancomycin 1500 q12, will switch to Doxycycline on discharge -Blood cultures no growth to date -ID (Dr. Woodall) consulted. REcommendations appreciated. -SUrgery (Dr. Mendez) consulted. Recommendations appreciated. Patient would benefit from home visiting nurse for continued wound care. Minutes to complete discharge: 37 Discharge Summary Problems reviewed: Yes Reason For Visit: ABSCESS Current Active Problems Abscess of left upper extremity (Acute) Anxiety (Acute) Cellulitis (Acute) Condition: Stable - Instructions Diet, Activity, Other Instructions: Your visit You were admitted to the hospital because you had an infection in your left arm. You were evaluated by surgery and drainage of the wound was done. Please keep the wound clean and dry at all times. You will also be sent home to continue with antibiotics as prescribed below. Medications Please take the following medications as prescribed: 1. Doxycycline 100mg twice a day for 12 days, starting tomorrow Please continue your other home medications. Follow up Please follow up with your primary care doctor in 1 week. Please follow up with the surgeon (Dr. Mendez) in 1-2 weeks. Please call the office to schedule an appointment. Additional info Please call 911 or go to the ED if with any worsening fevers, chills ,headache, dizziness, chest pain, shortness of breath, belly pain, diarrhea, or any new concerns noted. Dr. Mendez Discharge Instructions Physical activity Resume your normal everyday activity as tolerated no heavy lifting or exercise until seen by your surgeon. You may walk unlimited amounts of and climb stairs. You may resume driving the car when you feel safe and comfortable behind the wheel. Wound care Your wound will be tended to by a Visiting Nurse. If you want to shower prior too their scheduled arrival please do so. Diet There are no dietary restrictions. Eat healthy, high-fiber foods. Drink 6 to 8 glasses of liquid each day. This will assist in keeping your bowels are regular. Pain management You may take Tylenol or acetaminophen or Ibuprofen (for example, Motrin, Advil etc.) Any pain prescription medication ordered should be taken as prescribed for moderate to severe pain. Recommend taking your pain meds about 45 mins prior to scheduled dressing change. Call Dr. Mendez for any of the following: Severe pain not relieved by medication Fever of 101 or higher Excessive bleeding or drainage on dressing Inability to urinate Call the office at [phone] for a post operative appointment in 7 - 10 days. Referrals: Andi Mendez MD [Staff Physician] - León Enriquez [Primary Care Provider] - Disposition: [facility]/HOME HEALTH CARE - Home Medications Comprehensive Discharge Medication List: Ambulatory Orders Amitriptyline HCl [Elavil -] 50 mg PO BID 05/25/16 Gabapentin 1,200 mg PO HS 05/25/16 Famotidine [Pepcid -] 20 mg PO DAILY 07/19/16 Albuterol Sulfate Inhaler - [Ventolin HFA Inhaler -] 2 inh PO Q4H PRN #1 inhaler 07/24/16 Levothyroxine [Synthroid -] 25 mcg PO DAILY #30 mcg 07/24/16 oxyCODONE HCL [Roxicodone -] 5 mg PO Q4H PRN #20 tablet MDD 6 09/10/19 Doxycycline Hyclate 100 mg PO BID #24 tablet. 09/11/19 This patient is new to me today: No Emergency Visit: Yes ED Registration Date: 09/06/19 Care time: The patient presented to the Emergency Department on the above date and was hospitalized for further evaluation of their emergent condition. Critical Care patient: No - Discharge Referral Referred to [facility] Med [facility].C.: No ATTENDING PHYSICIAN STATEMENT I saw and evaluated the patient. I reviewed the resident's note and discussed the case with the resident. I agree with the resident's findings and plan as documented. SUBJECTIVE: OBJECTIVE: ASSESSMENT AND PLAN:
[2019-09-11 14:46] LABS: CALCIUM 8.4 mg/dL (8.5-10.1); POTASSIUM 3.9 mmol/L (3.5-5.1)
--- NOTE | 2019-09-17 14:37 | OP ---
DATE OF OPERATION: 09/09/2019 PREOPERATIVE DIAGNOSIS: Abscess of the soft tissue of the left antecubital fossa. POSTOPERATIVE DIAGNOSIS: Abscess of the soft tissue of the left antecubital fossa. PROCEDURE: Incision and drainage of left antecubital fossa abscess. SURGEON: Andi Mendez MD ANESTHESIA: General. OPERATIVE FINDINGS: There was a soft tissue abscess involving the left antecubital fossa with purulent drainage and marked induration of fibrosis and a thrombosed vein in the antecubital fossa. The rest of the findings were unremarkable. DESCRIPTION OF THE PROCEDURE: The patient was placed on the operating room table in the supine position. After the induction of general anesthesia the left upper extremity was prepped with Betadine and draped in a sterile fashion. A time-out was taken and using the scalpel an incision was made over the area of fluctuance. Purulent drainage was sent for culture and sensitivity to microbiology. All loculations were broken up using blunt dissection and hemostasis was secured with electrocautery. The wound was copiously irrigated with a combination of saline and peroxide. Hemostasis was again verified and then the wound was packed with 1/2 inch Iodoform gauze and dry sterile dressings were placed and the procedure terminated at this point and the patient aroused from general anesthesia and transferred to the postanesthesia care until in stable condition awake and alert. ESTIMATED BLOOD LOSS: Less than 5 mL replaced with crystalloid. DRAINS: None. SPECIMEN: Purulent drainage to microbiology for culture and sensitivity. I, Andi Mendez MD, was physically present in the operating room from the time the patient was placed on the operating table until she was transferred to the postanesthesia care unit in my accompaniment. Andi Mendez MD /[id number] MTDD
== END 2019-09-11 16:40 | disposition home health service (06) | DRG 383 ==
LOC: JER 13:02 → JERBED 16:23 → J7W 18:13
PROVIDERS: ADMIT Internal Medicine
PROC: 0J9H0ZX Drainage of Left Lower Arm Subcutaneous Tissue and Fascia, Open Approach, Diagnostic (ICD-10-PCS; principal; 2019-09-09 10:30)
DX: L02.414 Cutaneous abscess of left upper limb (principal); E03.9 Hypothyroidism, unspecified; E66.01 Morbid (severe) obesity due to excess calories; Z68.41 Body mass index [BMI] 40.0-44.9, adult; J45.909 Unspecified asthma, uncomplicated; F43.10 Post-traumatic stress disorder, unspecified; E04.1 Nontoxic single thyroid nodule; L03.114 Cellulitis of left upper limb; B95.62 Methicillin resistant Staphylococcus aureus infection as the cause of diseases classified elsewhere; F11.23 Opioid dependence with withdrawal; G89.29 Other chronic pain; G62.9 Polyneuropathy, unspecified; F41.8 Other specified anxiety disorders
CPT/HCPCS: 36415; 73202-TC-RT; 80048; 80053; 81003; 83605; 83735; 84100; 84443; 84702; 84703; 85025; 85027; 87040; 87070; 87186; 87205; 93005; 93010; 93306-TC; 94760; 99285-25; G0480; J0131; J1644; Q9967; U0003